=== PATIENT | male | born 1950 | race Caucasian/White ===

== ENCOUNTER 2020-10-16 09:05 | Outpatient (CLI) | payer MEDICARE, OTHER ==
[2020-10-16 09:56] VITALS: BP 108/60
--- NOTE | 2020-10-16 09:56 | SLEEP CARE CONSULTATION ---
Information from patient questionnaire entered by Elizabeth Mays. I have reviewed and concur with the information entered by Elizabeth Mays. This document represents the service I personally performed and the decisions made by me, Rachel Humphries ARNP. History of Present Illness Service Date and Time: 10/16/2020 09 Reason for Visit: New patient Chief Complaint: reports: Insomnia, Unrefreshed sleep, Snoring, Excessive daytime sleepiness, Observed pauses in breathing, Fatigue, Frequent awakenings at night Date of Onset: some a few years, some a few months Usual bedtime: 11-11:30 pm Time it takes to fall asleep: 10 minutes Snores at night: Yes (sometimes, intermittently) Observed to quit breathing while asleep: Yes Sleeps alone due to snoring: No Number of times waking at night: 3-6 Reasons for waking at night: reports: Gasping for air, Bathroom. denies: Choking, Snoring Toss, Turn, or Twitch while sleeping: Yes (occasional twitch) Recalls having dreams: No (rarely) Usually gets out of bed at: 7-8 am Feels refreshed in the morning: No Morning headache: No Sleepy or fatigued during the day: Yes Ever fallen asleep while driving: No Takes day naps: Yes (daily for 2 hours) Dreams during day naps: No Prior sleep studies: No Additional HPI information: I had the pleasure of seeing KAREN COPPOLA today regarding the possibility of him having a sleep disorder. His current complaints are insomnia, snoring, observed pauses in breathing, frequent night awakenings, unrefreshed sleep, excessive daytime sleepiness and fatigue. He has a MD diagnosis of sleep apnea from a doctor in the hospital. He has been sleeping in a chair since September. He is unable to lay down due to waking up gasping for air and "jumping out of bed" to be able to sleep. He has always snored and noted he has had apneas when sleeping at night. He was seen in the ER and found to have a CHF and was told by the nurse that he had pauses in breathing. A respiratory therapist tried to fit him with a machine in the hospital but it did not work. He was sent here to evaluate him for sleep apnea. - Parasomnia Symptoms Ever been unable to move upon waking from sleep: No Walks in sleep: No Talks in sleep: No Ever acted out dreams in sleep: No Ever felt weak in the knees when startled or emotional: Yes Bothered by creepy, crawly, restless sensations in legs: Yes (rarely) Problems with memory or concentration: Yes (sometimes) Subjective Initial [place] Sleepiness Scale score: 13 (in 2020) Past Medical History Past Medical History: reports: Hypertension, Claustrophobia, Congestive Heart Failure, Diabetes, Arthritis, Coronary Heart Disease (CT 1989, coronary arterial bypass grafts in 1996), Anemia, Impotence, Other (newly diagnosed heart failure, prostate cancer) Social History 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 Patient is and lives in [place]. Have you smoked in the past 12 months: No Cigarettes per day (20/pack): 30 Years of smokin Quit date: 07/12/1990 Smoking Pack Years: 31.5 Alcohol use: Yes Alcohol amount and frequency: little, rarely Caffeine use: Yes Caffeine amount and frequency: coffee, 3-4 cups daily Family History Family history of sleep disordered breathing: No Allergies and Home Medications Drug allergies reviewed: Yes (tetanus anti-toxins; Actiphed, Bactrim) Home medication list reviewed: Yes Allergy and home medication list: Lantus 15 units BID Januvia 50 mg Novolog U 100 sliding scale Atorvastatin 80 mg Lisinopril 2.5 mg Aspirin 81 mg, 2 tabs bid Magnesium 200 mg Metoprolol XL 25 mg Furosemide 20 mg Ferrous Sulfate 325 mg Vitamin C Flomax 0.4 mg 2 per day Vitamin D3 2000 IU x 4 tabs Mupirocin 2% Ketoconazole shampoo and cream Clobetasol ointment and cream, psoriasis Review of Systems Weight gain over past 5 years: 5 Cardiovascular: reports: high blood pressure, irregular heart rate or pulse, leg or foot swelling, have to sleep sitting up Respiratory: reports: shortness of breath Urinary: reports: frequency, urgency, impotence Neurological: reports: fainting or unconsciousness Psychiatric: reports: anxiety, claustrophobia Ear/Nose/Throat: reports: nasal congestion, nose bleeds, tonsillectomy, wisdom teeth removed Endocrine: reports: sluggishness, too hot or cold Musculoskeletal: reports: joint pain, back pain, joint swelling, muscle pain or cramping, mobility problems Immunologic: reports: sneezing, rash Physical Exam Blood Pressure: 108/60 Cuff size: wrist Heart Rate: 41 (pt nonsymptomatic for bradycardia) O2 Saturation: 99 Height: 5 ft 10 in Weight: 198 lb 8 oz (measured on home scale) Body Mass Index: 28.5 BMI Classification: Overweight Neck circumference: 15.9 (inches) Nostrils: patent to airflow Mouth and throat: narrow oropharynx Soft palate: long Hard palate: normal Uvula: normal Uvula visualization: 100% Mallampati Class I Tongue: normal in size Tonsils: absent bilaterally Neck: normal w/o lymphadenopathy or thyromegaly Heart: regular rate and rhythm Lungs: clear bilaterally Impression and Plan 1. Suspected Obstructive Sleep Apnea-Hypopnea Syndrome, as suggested by a history of loud and irregular snoring, observed cessation of breath while asleep, gasping or choking in sleep, frequent awakening during the night, unrefreshed sleep, cognitive impairment, and excessive daytime sleepiness. Narrow oropharynx and obesity are common predisposing factors for obstructive sleep apnea-hypopnea syndrome. I recommend proceeding to polysomnography to confirm the diagnosis and to assess severity. If the patient has significant sleep disordered breathing, a manual CPAP titration study will also be performed to find the optimal treatment pressure. I informed the patient of what the sleep studies involve and after some discussion, obtained agreement to proceed. The pathophysiology of obstructive sleep apnea-hypopnea syndrome was discussed with the patient and health risks of cardiovascular and cerebrovascular disease if not treated. Risks of drowsy driving discussed in detail and patient advised to avoid long distance driving and to pullman car clerk at the first sign of drowsiness. Patient agreed to plan. * Schedule polysomnography +- manual CPAP titration study and return in 1-2 weeks after the study to discuss result and initiate therapy. * Avoid long distance driving or driving when feeling sleepy. * Avoid alcohol, sedative and muscle relaxant around bedtime. * Attempt to lose weight. * Review instructions provided by trained office staff on how to prepare for the sleep study. * Return for follow-up after sleep study completed. Counseling Topics: Weight loss health impact Visit Type: In Office Time Spent with Patient (minutes): 37 Provider Statement: I spent 100% of the Face to Face Visit with the patient with greater than 50% spent counseling the patient and coordination of care.
== END 2020-10-16 09:06 | disposition home or self-care (01) ==
LOC: SC 09:05
PROVIDERS: ATTEND Nurse Practitioner Family
DX: R06.81 Apnea, not elsewhere classified (principal); G47.10 Hypersomnia, unspecified; G47.8 Other sleep disorders; E66.3 Overweight; Z68.28 Body mass index [BMI] 28.0-28.9, adult; R06.83 Snoring; R41.89 Other symptoms and signs involving cognitive functions and awareness
CPT/HCPCS: 99203; G0463; 99212

== ENCOUNTER 2020-11-01 09:51 | Outpatient (CLI) | payer MEDICARE, OTHER ==
--- NOTE | 2020-11-01 10:38 | SLEEP CARE CONSULTATION ---
Information from patient questionnaire entered by Elizabeth Mays. I have reviewed and concur with the information entered by Elizabeth Mays. This document represents the service I personally performed and the decisions made by , Rachel Humphries ARNP. History of Present Illness Service Date and Time: 11/01/2020 0951 Accompanied by: Spouse Initial [place] Sleepiness Scale score: 13 (in 2020) Current [place] Sleepiness Scale score: 17 Additional HPI information: KAREN COPPOLA returns with spouse for follow up and results of the recently performed polysomnography. I explained the pathophysiology behind obstructive sleep apnea. We then spent quite a bit of time discussing different treatment options. For mild obstructive sleep apnea, surgery and oral appliance are alternatives to nasal CPAP therapy but in moderate or severe cases, nasal CPAP is the most effective and reliable treatment. Because apnea is primarily in supine position, then positional management therapy could be effective. Methods discussed such as positioning with pillows, using a T-shirt with tennis balls in the back, and shown commercial products that have a pillow format on back to prevent supine sleep. I reviewed the impact of weight changes on sleep apnea and strongly recommended losing weight. Patient counseled not drink alcohol less than 4 hours before bedtime as it can increase snoring and apnea. Patient was cautioned about risks of drowsy driving until sleepiness symptoms resolve. Sleep Study - Results Type of Sleep Study: Polysomnography (at [facility]) Prior sleep studies: No Polysomnography/Home Sleep Study results: Interpretation: In-laboratory Attended Nocturnal Polysomnography. The patient had normal sleep efficiency. The sleep architecture was abnormal for sleep fragmentation and reduced amount of time spent in REM and slow wave sleep. Respiratory monitoring showed severe central sleep apnea-hypopnea (AHI 58.5) associated with frequent arousals, oxyhemoglobin desaturation and moderate hypoxia (rena oxygen saturation of 80.0%), Baseline oxygen saturation was normal. The respiratory events occurred mainly during non-REM sleep. The patient only slept in supine position during this study. Snoring was light to moderate in intensity. There was no periodic leg movement of sleep. Cardiac rhythm was atrial fibrillation. No abnormal behavior (parasomnia) observed during the night. Allergies and Home Medications Home medication list reviewed: Yes (metroprolol) Review of Systems Review of systems same as previous: Yes (no changes) Physical Exam Heart Rate: 34 (due to metoprolol) O2 Saturation: 96 Height: 5 ft 10 in Weight: 196 lb 11.2 oz Body Mass Index: 28.2 BMI Classification: Overweight Impression and Plan 1. Central Sleep Apnea-Hypopnea Syndrome, severe, with lowest oxygen saturation of 80%. Obviously this is the cause of the patients symptoms of unrefreshed sleep, and excessive daytime sleepiness. Positive pressure therapy could benefit hypertension, diabetes, congestive heart failure, heart disease and heart arrhythmia. A manual titration study will be completed to find optimal treatment pressure. I instructed to avoid sleeping supine using pillow positioning or sitting with head up until able to start CPAP use. 2. Atrial fibrillation seen during PSG. He is newly diagnosed with CHF and was told he may develop atrial fibrillation by his mold swabber. Patient was advised to follow up as appropriate with mold swabber for further evaluation of his heart rhythm. * Titration study * Follow up with mold swabber as appropriate for atrial fibrillation * Attempt to lose weight. * Avoid alcohol consumption near bedtime. * Avoid supine sleep until using CPAP/BIPAP. * The patient is again cautioned about driving until sleepiness completely resolves. * Return after titration study to initiate therapy Counseling Topics: Weight loss health impact Visit Type: In Office Other Participants: Spouse/Significant Other Time Spent with Patient (minutes): 21 Provider Statement: I spent 100% of the Face to Face Visit with the patient with greater than 50% spent counseling the patient and coordination of care.
--- OUTSIDE RECORDS SUMMARY | 2020-11-07 00:40 | EXTERNAL MEDICAL SUMMARY RPT | Continuity of Care Document ---
:1950 Demographics Phone Unavailable Preferred Language Vietnamese Marital Status Unknown Buddhism Affiliation Unknown Race Unknown Ethnic Group Unknown Author Organization [place] Address [address] [phone] Phone Care Team Providers Name Role Phone Lanker Unavailable Unavailable [place] Unavailable Unavailable Problems date description facility 20200925 Acute kidney failure, unspecified [facility] Medications date description facility 20200925 ferrous sulfate 325 MG Oral Tablet [facility] [id number] sitagliptin 50 MG Oral Tablet [facility] [id number] Tamsulosin hydrochloride 0.4 MG Oral [facility] [id number] ferrous sulfate 325 MG Oral Tablet [facility] [id number] sitagliptin 50 MG Oral Tablet [facility] [id number] Tamsulosin hydrochloride 0.4 MG Oral [facility] [id number] Metoprolol Tartrate 25 MG Oral Tablet [facility] 20200928 Metoprolol Tartrate 25 MG Oral Tablet [facility] Procedures date description facility 20200925 [facility] date description facility [id number] [facility] date description facility 20200925 [facility] date description facility 20200925 [facility] date description facility 20200929 [facility] Vital Signs date measurement value source 20200925 BMI 29.0 kg/m2 [id number] BP_diastolic 65 mm[Hg] 98710722 BP_systolic 150 mm[Hg] 52721591 heart_rate 80 /min [id number] height_metric 177.8 cm [id number] height_standard 70 in 20200925 respiration_rate 14 /min 20200925 temperature_metric 36.22 C 20200925 temperature_standard 97.2 F 20200925 weight_metric 91.62 kg [id number] weight_standard 201.99 lb date measurement value source 20200926 height_metric 177.8 cm [id number] height_standard 70 in date measurement value source 20200928 BP_diastolic 69 mm[Hg] 20200928 BP_systolic 108 mm[Hg] 20200928 heart_rate 61 /min 20200928 respiration_rate 16 /min 20200928 temperature_metric 36 C 20200928 temperature_standard 96.8 F 20200928 weight_metric 88.8 kg 20200928 weight_standard 195.77 lb date measurement value source 20200929 BMI 29.4 kg/m2 20200929 BP_diastolic 55 mm[Hg] 20200929 BP_systolic 91 mm[Hg] 20200929 heart_rate 71 /min 20200929 height_metric 177.8 cm 20200929 height_standard 70 in 20200929 respiration_rate 25 /min 20200929 temperature_metric 36.28 C 20200929 temperature_standard 97.3 F 20200929 weight_metric 42.18 kg 20200929 weight_standard 92.99 lb Social History date description facility [id number]
== END 2020-11-01 09:52 | disposition home or self-care (01) ==
LOC: SC 09:51
PROVIDERS: ATTEND Nurse Practitioner Family
DX: Z01.818 Encounter for other preprocedural examination (principal); G47.31 Primary central sleep apnea; I48.91 Unspecified atrial fibrillation; I50.9 Heart failure, unspecified; E66.3 Overweight; Z68.28 Body mass index [BMI] 28.0-28.9, adult; Z20.822 Contact with and (suspected) exposure to COVID-19
CPT/HCPCS: 99213; G0463; U0004; 99212

== ENCOUNTER 2020-11-01 10:50 | Outpatient (CLI) | payer MEDICARE, OTHER ==
--- OUTSIDE RECORDS SUMMARY | 2020-11-07 00:48 | EXTERNAL MEDICAL SUMMARY RPT | Continuity of Care Document ---
:1950 Demographics Phone Unavailable Preferred Language Luxembourgish Marital Status Unknown Mandaen Affiliation Unknown Race Unknown Ethnic Group Unknown Author Organization [place] Address [address] [phone] Phone Care Team Providers Name Role Phone Noé Unavailable Unavailable Lanker Unavailable Unavailable Problems date description facility 20200925 Acute kidney failure, unspecified [facility] Medications date description facility 20200925 ferrous sulfate 325 MG Oral Tablet [facility] [id number] sitagliptin 50 MG Oral Tablet [facility] 22291368 Tamsulosin hydrochloride 0.4 MG Oral [facility] 73218559 ferrous sulfate 325 MG Oral Tablet [facility] [id number] sitagliptin 50 MG Oral Tablet [facility] 24817385 Tamsulosin hydrochloride 0.4 MG Oral [facility] 35182599 Metoprolol Tartrate 25 MG Oral Tablet [facility] 20200928 Metoprolol Tartrate 25 MG Oral Tablet [facility] Procedures date description facility 20200925 [facility] date description facility [id number] [facility] date description facility 20200925 [facility] date description facility 20200925 [facility] date description facility 20200929 [facility] Vital Signs date measurement value source 20200925 BMI 29.0 kg/m2 92215351 BP_diastolic 65 mm[Hg] 12908995 BP_systolic 150 mm[Hg] 50400285 heart_rate 80 /min 14186586 height_metric 177.8 cm [id number] height_standard 70 in 20200925 respiration_rate 14 /min 20200925 temperature_metric 36.22 C 20200925 temperature_standard 97.2 F 20200925 weight_metric 91.62 kg 01659934 weight_standard 201.99 lb date measurement value source 20200926 height_metric 177.8 cm [id number] height_standard 70 in date measurement value source [...] 92.99 lb Social History date description facility [id number]
== END 2020-11-01 10:51 | disposition home or self-care (01) ==
LOC: LAB.N 10:50
PROVIDERS: ATTEND Student in an Organized Health Care Education/Training Program
DX: Z01.812 Encounter for preprocedural laboratory examination (principal); Z20.822 Contact with and (suspected) exposure to COVID-19

== ENCOUNTER 2020-11-13 16:03 | Outpatient (CLI) | payer MEDICARE, OTHER ==
--- NOTE | 2020-11-13 17:16 | SLEEP CARE CONSULTATION ---
Information from patient questionnaire entered by Abdirahman Lara. I have reviewed and concur with the information entered by Abdirahman Lara. This document represents the service I personally performed and the decisions made by , Rachel Humphries ARNP. History of Present Illness Service Date and Time: 11/13/2020 1603 Initial [place] Sleepiness Scale score: 13 (in 2020) Current [place] Sleepiness Scale score: 16 Additional HPI information: KAREN COPPOLA retruns with spouse for follow up of the sleep study with a manual CPAP to BIPAP titration study performed on 11/04/2020 at [facility]. I explained that the optimal BIPAP pressure is 17/12 cmH2O. He was titrated up to 15/[address] Avalos recommended that because he continued to snore and oxyhemoglobin desaturation still persisted that he be set up at the 17/12 with a backup rate at 10 breaths per minute. Sleep Study - Results Type of Sleep Study: Polysomnography (at [facility]) Prior sleep studies: No Polysomnography/Home Sleep Study results: Interpretation: In-laboratory manual positive airway pressure titration study. CPAP was initiated at 5 cmH2O and titrated up to BiPAP A/T at 15/10 cmH20 and a backup rate of 11 . BiPAP SIT at 15/10 cmH20 appeared to be effective (AHi of O per hour on the pressure). There was supine sleep on the pressure. Oxygen saturation was mildly low from frequent oxyhemoglobin desaturation. Snore persisted throughout the study. CPAP and regular BiPAP allowed frequent central apneas and Joel-Alvarez breathing. The patient appeared to have tolerated positive airway pressure therapy very well. The patient's sleep efficiency was minimally reduced. The sleep architecture was abnormal for sleep fragmentation and reduced amount of time spent in REM sleep. There was no periodic limb movement. Cardiac rhythm was sinus rhythm frequent premature atrial contractions in bigeminy. No abnormal movement observed during the night. Recommendations: 1. Central sleep apnea-hypopnea ~ ICD G47.3 l, severe (AHi was with a backup rate of 58.5), adequately controlled with BiPAP SIT at 15/10 cmH20 and backup rate of 11. CPAP and regular BiPAP were ineffective. Because snore and oxyhemoglobin desaturation still persisted, a higher pressure setting is recommended. BiPAP set at 17/12 cmlH2O is reas onable. Backup rate can be set at 10 breaths per minute. Allergies and Home Medications Home medication list reviewed: Yes Allergy and home medication list: stopped Metropolol started Carvedilol Review of Systems Review of systems same as previous: No (change in heart medication; has a regular irregular heart beat) Physical Exam Heart Rate: 38 (thinks it is medication related) O2 Saturation: 96 Height: 5 ft 10 in Weight: 195 lb Body Mass Index: 27.9 BMI Classification: Overweight Impression and Plan 1. Central Sleep Apnea-Hypopnea Syndrome, severe. He returned after his titration study with noted control of his apneas on BIPAP at 15/10 cmH2O. But it was recommended because of continued snoring and oxygen desaturation that continued at that pressure level that he start at 17/12 cmH2O with backup rate of 10 breaths per minute. Due to patient severity and need for treatment, I am writing for an urgent setup. Patient voiced understanding and agreement to plan. Patient's apnea severity and rationale for treatment to reduce apnea, improve sleep quality and reduce cardiovascular and cerebrovascular events was reviewed. I also reviewed the benefit of consistent device use of BIPAP for hypertension and heart arrhythmia. Urgent setup: Nasal autoBiPAP therapy, pressure at 17/12 cm H2O. Attempt to lose weight. Avoid alcohol consumption near bedtime. Avoid supine sleep until using BIPAP. The patient is again cautioned about driving until sleepiness completely resolves. Return one month after CPAP obtained. I will assess response to therapy and compliance at that time. Counseling Topics: Weight loss health impact Visit Type: In Office Other Participants: Spouse/Significant Other Time Spent with Patient (minutes): 32 Provider Statement: I spent 100% of the Face to Face Visit with the patient with greater than 50% spent counseling the patient and coordination of care.
== END 2020-11-13 16:04 | disposition home or self-care (01) ==
LOC: SC 16:03
PROVIDERS: ATTEND Nurse Practitioner Family
DX: G47.31 Primary central sleep apnea (principal); E66.3 Overweight; Z68.27 Body mass index [BMI] 27.0-27.9, adult
CPT/HCPCS: 99214; G0463; 99212

== ENCOUNTER 2021-01-08 09:58 | Outpatient (CLI) | payer MEDICARE, OTHER ==
--- NOTE | 2021-01-08 10:59 | SLEEP CARE CONSULTATION ---
Information from patient questionnaire entered by Elizabeth Mays. I have reviewed and concur with the information entered by Elizabeth Mays. This document represents the service I personally performed and the decisions made by , Rachel Humphries ARNP. History of Present Illness Service Date and Time: 01/08/2021 0958 Previous diagnosis: Severe, Central Sleep Apnea-Hypopnea Syndrome AHI: 58.5 (in 2020) Reason for follow up: first compliance Equipment type: BiPAP (S/T) Equipment obtained from: Other ([facility]; got initial supplies) Mask style: Nasal Backup mask available: Yes (old mask from sleep study) Prior sleep studies: Yes Year and Where: 2020 - [facility] Type of Sleep Study: Polysomnography (at [facility]) HPI additional information: KAREN COPPOLA was diagnosed to have severe, AHI 58.5, central sleep apnea- hypopnea syndrome and returned today with spouse for BIPAP therapy first compliance follow-up. CPAP Compliance Data - Data Reviewed with Patient Average duration of nightly device use: 4 hr 5 min Compliance rate %: 70 Current pressure setting (cmH2O): 14/10 Humidity settin Heated hose settin Average residual AHI: 18.8 Subjective Patient concerns: reports: mask discomfort, nasal congestion (in general, no due to CPAP), dry mouth, nose, throat (using chinstrap). denies: aerophagia, air blowing in eyes, mask leak noise, condensation in mask/hose, epistaxis, other Observed to snore while using device: No Current pressure setting perceived as: comfortable On therapy, patient: reports: sleeping better, awakening more refreshed, being more awake and alert during the day, more rested overall. denies: drowsiness while driving Initial [place] Sleepiness Scale score: 13 (in 2020) Current [place] Sleepiness Scale score: 11 Allergies and Home Medications Home medication list reviewed: Yes (lisinopril 2.5 mg; Jardiance stopped) Review of Systems Review of systems same as previous: Yes (no changes) Physical Exam Heart Rate: 60 O2 Saturation: 99 Height: 5 ft 10 in Weight: 193 lb 1.6 oz Weight change since last visit: 2 lb loss Body Mass Index: 27.7 BMI Classification: Overweight Impression and Plan 1. Central Sleep Apnea-Hypopnea Syndrome, severe, with fair treatment compliance and fair apnea control with elevated residual AHI. On BIPAP therapy, the patient has better sleep quality and is more rested overall. His states that he seems to be resting more comfortably and not as restless at night. He has had some throat dryness that improved with use of a chinstrap. We discussed using the humidifier to help reduce oral dryness and he voiced understanding. He also voiced that he would like to try a fullface mask to see if it is more comfortable than the nasal cushion that he is using now. He has tried the nasal pillows and this was not as comfortable as the nasal cushion. He finds the current pressure comfortable but his residual AHI is elevated at 18.8. I will change his pressure slowly since he was having difficulty with oral venting which was improved with the chinstrap. He would like to increase pressure slowly so that he may get used to it. His titration study showed good apnea control at 15/10 cmH2O and I will increase his pressure to this and follow-up with him in 1 to 2 months. Patient voiced understanding and agreement with plan of care. Patient's apnea severity and rationale for treatment to reduce apnea, improve sleep quality and reduce cardiovascular and cerebrovascular events was reviewed. I also reviewed the benefit of consistent device use of BIPAP for hypertension, and arrhythmia. * Change auto BIPAP pressure to 15/10 cmH2O * Notify me if snoring with mask or feeling that the pressure is too much or too little * Attempt to lose weight * Call this office if any problems using BIPAP * Return for follow up in 1-2 months, or sooner if concerns arise Counseling Topics: Spare mask, Weight loss health impact Visit Type: In Office Time Spent with Patient (minutes): 29 Provider Statement: I spent 100% of the Face to Face Visit with the patient with greater than 50% spent counseling the patient and coordination of care.
== END 2021-01-08 09:59 | disposition home or self-care (01) ==
LOC: SC 09:58
PROVIDERS: ATTEND Nurse Practitioner Family
DX: G47.33 Obstructive sleep apnea (adult) (pediatric) (principal); E66.3 Overweight; Z68.27 Body mass index [BMI] 27.0-27.9, adult
CPT/HCPCS: 99213; G0463; 99212

== ENCOUNTER 2021-02-20 09:49 | Outpatient (CLI) | payer MEDICARE, OTHER ==
--- NOTE | 2021-02-20 10:43 | SLEEP CARE CONSULTATION ---
Information from patient questionnaire entered by Abdirahman Lara. I have reviewed and concur with the information entered by Abdirahman Lara. This document represents the service I personally performed and the decisions made by me, Rachel Humphries ARNP. History of Present Illness Service Date and Time: 02/20/2021 0949 Previous diagnosis: Severe, Central Sleep Apnea-Hypopnea Syndrome AHI: 58.5 Reason for follow up: other (6-week f/u - pressure change) Accompanied by: Spouse Equipment type: BiPAP Equipment obtained from: Other ([facility]; getting supplies as needed) Mask style: Nasal Backup mask available: Yes (old mask) Last cushion change: rotates 3 daily Prior sleep studies: Yes Year and Where: 2020 - [facility] Type of Sleep Study: Polysomnography (at [facility]) HPI additional information: KAREN COPPOLA was diagnosed to have severe, AHI 58.5, central sleep apnea- hypopnea syndrome and returned today with spouse for BIPAP therapy 6 week pressure change follow-up. CPAP Compliance Data - Data Reviewed with Patient Average duration of nightly device use: 4 h 53 min Compliance rate %: 83.3 Current pressure setting (cmH2O): 15/10 Humidity settin Heated hose settin Average residual AHI: 15.1 Central apnea: 0.8 Obstructive apnea: 0.1 Hypopnea: 14.2 Subjective Patient concerns: reports: condensation in mask/hose, nasal congestion, dry mouth, nose, throat. denies: aerophagia, mask discomfort, air blowing in eyes, mask leak noise, epistaxis, other Observed to snore while using device: No Current pressure setting perceived as: comfortable On therapy, patient: reports: sleeping better, awakening more refreshed, being more awake and alert during the day, more rested overall. denies: drowsiness while driving Initial [place] Sleepiness Scale score: 13 (in 2020) Current [place] Sleepiness Scale score: 12 Allergies and Home Medications Home medication list reviewed: Yes Allergy and home medication list: Carvedilol Lokelma Review of Systems Review of systems same as previous: No (Heart cath on 03/01) Physical Exam Heart Rate: 44 O2 Saturation: 99 Height: 5 ft 10 in Weight: 193 lb 9.6 oz Body Mass Index: 27.8 BMI Classification: Overweight Impression and Plan 1. Central Sleep Apnea-Hypopnea Syndrome, severe, with good treatment compliance and fair apnea control with elevated residual AHI. On BIPAP therapy, the patient has better sleep quality and is more rested overall. The patients pressure will be changed to autoBIPAP 17/10 cmH20 for elevation of residual AHI. Patient advised to contact me if pressure change is uncomfortable so that it can be adjusted. Goals for apnea control discussed. Patient has been using a nasal cushion mask with a chin strap but is going to try a full face mask ([employer]) before ordering more nasal cushions. He has been having some nasal congestion and oral dryness. Nasal congestion and oral dryness can be reduced with increasing the CPAP humidity as shown on sample device. The heated hose can be adjusted higher if condensation with higher humidity setting. Saline nasal spray may be used prior to CPAP to clear nasal secretions and wash off any nasal allergens to facilitate nasal breathing. In addition, a steamy shower before bed will often assist nasal drainage. He voiced understanding. Patient's apnea severity and rationale for treatment to reduce apnea, improve sleep quality and reduce cardiovascular and cerebrovascular events was reviewed. I also reviewed the benefit of consistent device use of BIPAP for hypertension, CHF, and arrhythmia. Patient is aware of the [employer] recall and has registered his device. He has not noted any black particles in his tubing or machine. He states [facility] is [facility] if [facility] will replace his recalled device, so he does not have to wait. He will contact us if he needs something from us. * Change auto BIPAP pressure to 17/10 cmH2O * Notify me if snoring with mask or feeling that the pressure is too much or too little * Attempt to lose weight * Call this office if any problems using BIPAP * Return for follow up in 1-2 months, or sooner if concerns arise Counseling Topics: Spare mask, Weight loss health impact Visit Type: In Office Time Spent with Patient (minutes): 27 Provider Statement: I spent 100% of the Face to Face Visit with the patient with greater than 50% spent counseling the patient and coordination of care.
== END 2021-02-20 09:50 | disposition home or self-care (01) ==
LOC: SC 09:49
PROVIDERS: ATTEND Nurse Practitioner Family
DX: G47.31 Primary central sleep apnea (principal)
CPT/HCPCS: 99213; G0463; 99212

== ENCOUNTER 2021-04-04 23:33 | Outpatient (CLI) | payer MEDICARE, OTHER | END 2021-04-04 23:34 | disposition critical access hospital (66) | LOC: EMS 23:33 | DX: U07.1 COVID-19 (principal) | CPT/HCPCS: A0425; A0429 ==

== ENCOUNTER 2021-04-04 23:56 | Inpatient (IN) | payer MEDICARE, OTHER ==
[2021-04-05 00:40] LABS: EOSINOPHILS % (AUTO) 0.2 %; HCT - HEMATOCRIT 43.2 % (42.0-52.0); HGB - HEMOGLOBIN 13.9 g/dL (14.0-18.0); LYMPHOCYTES # (AUTO) 0.8 10^3/uL (1.5-3.5); LYMPHOCYTES % (AUTO) 11.5 %; MEAN CORPUSCULAR HEMOGLOBIN 29.6 pg (27.0-31.0); MEAN CORPUSCULAR HGB CONC 32.2 g/dL (32.0-36.0); MEAN CORPUSCULAR VOLUME 91.9 fL (80.0-94.0); MEAN PLATELET VOLUME 9.1 fL (7.4-11.4); MONOCYTES # (AUTO) 0.5 10^3/uL (0.0-1.0); NEUTROPHILS # (AUTO) 5.3 10^3/uL (1.5-6.6); NEUTROPHILS % (AUTO) 79.8 %; PLT - PLATELET COUNT 155 10^3/uL (130-450); RED CELL DISTRIBUTION WIDTH 13.7 % (12.0-15.0); WHITE BLOOD COUNT 6.6 x10^3/uL (4.8-10.8)
[2021-04-05 00:41] LABS: VBG BASE EXCESS -1.2 mmol/L (-2 - +2); VBG HCO3 24.2 mmol/L (23-28); VBG OXYGEN SATURATION 70.7 % (60-80); VBG PCO2 43.4 mmHg (41-51); VBG PH 7.365 (7.31-7.41); VBG PO2 36.6 mmHg (25-47); VBG TOTAL CO2 25.6 mmol/L (24-29)
[2021-04-05 00:57] LABS: ALBUMIN 3.3 g/dL (3.2-5.5); ALBUMIN/GLOBULIN RATIO 0.9 (1.0-2.2); BILIRUBIN,TOTAL 1.4 mg/dL (0.2-1.0); CALCIUM 8.7 mg/dL (8.5-10.3); CREATININE 1.3 mg/dL (0.6-1.2); CRP HIGH SENSITIVITY 121.5 mg/L; TOTAL PROTEIN 6.8 g/dL (6.7-8.2)
--- NOTE | 2021-04-05 01:03 | ED Physician Documentation ---
History of Present Illness - Stated complaint Stated Complaint: C+/ SOA - Chief complaint Chief Complaint: Resp - History obtained from History obtained from: Patient - Additonal information Additional information: 71-year-old man with history of heart failure, Coronary disease and [place] status post CABG, diabetes, high blood pressure, CKD, presents with positive Covid test on March 24, with worsening Covid symptoms over the past week of shortness of breath, chest pain, myalgias, nausea, lightheadedness, generalized weakness and malaise. Denies diarrhea and vomiting. Review of Systems Ten Systems: 10 systems reviewed and negative Constitutional: reports: Fever, Chills, Myalgias, Fatigue Cardiac: reports: Chest pain / pressure Respiratory: reports: Dyspnea, Cough GI: reports: Nausea Neurologic: reports: Generalized weakness PD PAST MEDICAL HISTORY - Past Medical History Past Medical History: Yes Cardiovascular: Congestive heart failure, Hypertension, High cholesterol Respiratory: Shortness of breath Neuro: None Endocrine/Autoimmune: Type 2 diabetes GI: None : Other HEENT: None Musculoskeletal: None Derm: None Other Past Medical History: Kidney failure - Past Surgical History Past Surgical History: Yes Cardiovascular: CABG, Other - Present Medications Home Medications: Ambulatory Orders Medication Instructions Recorded Confirmed Aspirin [Aspirin EC] 162 mg PO DAILY 04/05/21 04/05/21 Atorvastatin [Lipitor] 20 mg PO DAILY 04/05/21 04/05/21 Insulin Aspart [Novolog] 2 units SQ DAILY 04/05/21 04/05/21 Insulin Glargine [Lantus Solostar] 15 unit SQ DAILY 04/05/21 04/05/21 Lisinopril [Zestril] 2.5 mg PO DAILY 04/05/21 04/05/21 Sitagliptin Phosphate [Januvia] 50 mg PO DAILY 04/05/21 04/05/21 - Allergies Allergies/Adverse Reactions: Allergies Allergy/AdvReac Type Severity Reaction Status Date / Time bisoprolol Allergy Unknown Verified 04/05/21 00:33 sulfamethoxazole Allergy Unknown Verified 04/05/21 00:33 [From Bactrim] Tetanus Vaccines and Toxoid Allergy Unknown Verified 04/05/21 00:33 trimethoprim [From Bactrim] Allergy Unknown Verified 04/05/21 00:33 - Social History Does the pt smoke?: No Smoking Status: Never smoker Does the pt have substance abuse?: No - POLST Patient has POLST: No PD ED PE NORMAL - Vitals Vital signs reviewed: Yes - General General: Alert and oriented X 3, Other (uncomfortable appearing older gentleman in NAD) - HEENT HEENT: Atraumatic, PERRL, EOMI, Moist mucous membranes - Neck Neck: Supple, no meningeal sign - Cardiac Cardiac: RRR - Respiratory Respiratory: Other (BL rhonchi) - Abdomen Abdomen: Non tender, Non distended - Derm Derm: Normal color, Warm and dry - Neuro Neuro: Alert and oriented X 3 - Psych Psych: Normal mood, Normal affect Results - Vitals Vitals: Vital Signs - 24 hr 04/05/21 04/05/21 00:10 00:20 Temperature 36.6 C Heart Rate 86 Respiratory 22 Rate Blood Pressure 152/133 H O2 Saturation 91 L 91 L Oxygen O2 Source Room air - EKG (time done) 0010 Rate: Rate (enter#) Rhythm: NSR (80) [place]: RAD Intervals: Normal OK QRS: Normal Ischemia: No: ST elevation c/w ischemia - Labs Labs: Laboratory Tests 04/05/21 04/05/21 04/05/21 00:30 00:33 00:33 WBC 6.6 RBC 4.70 Hgb 13.9 L Hct 43.2 MCV 91.9 MCH 29.6 MCHC 32.2 RDW 13.7 Plt Count 155 MPV 9.1 Neut # (Auto) 5.3 Lymph # (Auto) 0.[address] [place] # (Auto) 0.5 Eos # (Auto) 0.0 Baso # (Auto) 0.0 Absolute Nucleated RBC 0.00 Nucleated RBC % 0.0 ESR D-Dimer 291.0 H Anti-Xa Level 0.0 VBG pH VBG pCO2 VBG pO2 VBG HCO3 VBG Total CO2 VBG O2 Saturation VBG Base Excess Sodium Potassium Chloride Carbon Dioxide Anion Gap BUN Creatinine Estimated GFR (MDRD) Glucose Lactic Acid Calcium Total Bilirubin AST ALT Alkaline Phosphatase Troponin I High Sens C-React Prot High Sens B-Natriuretic Peptide Total Protein Albumin Globulin Albumin/Globulin Ratio Lipase 04/05/21 04/05/21 04/05/21 00:33 00:33 00:33 WBC RBC Hgb Hct MCV MCH MCHC RDW Plt Count MPV Neut # (Auto) Lymph # (Auto) [place] # (Auto) Eos # (Auto) Baso # (Auto) Absolute Nucleated RBC Nucleated RBC % ESR D-Dimer Anti-Xa Level VBG pH VBG pCO2 VBG pO2 VBG HCO3 VBG Total CO2 VBG O2 Saturation VBG Base Excess Sodium 133 L Potassium 5.0 Chloride 97 L Carbon Dioxide 23 Anion Gap 13.0 BUN 29 H Creatinine 1.3 H Estimated GFR (MDRD) 54 L Glucose 154 H Lactic Acid Calcium 8.7 Total Bilirubin 1.4 H AST 45 H ALT 32 Alkaline Phosphatase 51 Troponin I High Sens 62.8 H* C-React Prot High Sens 121.5 B-Natriuretic Peptide 43 Total Protein 6.8 Albumin 3.3 Globulin 3.5 Albumin/Globulin Ratio 0.9 L Lipase 40 04/05/21 04/05/21 04/05/21 00:33 00:33 00:54 WBC RBC Hgb Hct MCV MCH MCHC RDW Plt Count MPV Neut # (Auto) Lymph # (Auto) [place] # (Auto) Eos # (Auto) Baso # (Auto) Absolute Nucleated RBC Nucleated RBC % ESR 44 H D-Dimer Anti-Xa Level VBG pH 7.365 VBG pCO2 43.4 VBG pO2 36.6 VBG HCO3 24.2 VBG Total CO2 25.6 VBG O2 Saturation 70.7 VBG Base Excess -1.2 Sodium Potassium Chloride Carbon Dioxide Anion Gap BUN Creatinine Estimated GFR (MDRD) Glucose Lactic Acid 1.0 Calcium Total Bilirubin AST ALT Alkaline Phosphatase Troponin I High Sens C-React Prot High Sens B-Natriuretic Peptide Total Protein Albumin Globulin Albumin/Globulin Ratio Lipase PD MEDICAL DECISION MAKING - ED course ED course: Negative age adjusted d-dimer. elevated trop without acute EKG changes. ASA and heparin administered. d/w Dr. Leary for admission. Departure - Departure Disposition: 66 [facility] DC/Xfer Clinical Impression: COVID-19, NSTEMI (non-ST elevated myocardial infarction), Hypoxia Condition: Stable
[2021-04-05] MEDS ORDERED: ASPIRIN 325 MG TABLET PO STA (01:05)
[2021-04-05] MEDS ORDERED: oxyCODONE 5 MG TABLET PO PRN (01:53)
[2021-04-05] MEDS ORDERED: ONDANSETRON 4 MG/2 ML VIAL IVP PRN (01:53)
[2021-04-05] MEDS ORDERED: ONDANSETRON ODT 4 MG TABLET TL PRN (01:53)
[2021-04-05] MEDS ORDERED: ACETAMINOPHEN 325 MG TABLET PO PRN (01:53)
[2021-04-05] MEDS ORDERED: HEPARIN 25000UNITS/500ML (D5W) 25,000 UNIT/500 ML BAG IV SCH (02:00)
[2021-04-05] MEDS ORDERED: ENOXAPARIN 80 MG/0.8 ML SYRINGE SUBQ SCH (02:00)
--- NOTE | 2021-04-05 02:43 | HISTORY & PHYSICAL EXAMINATION ---
Chief Complaint - Chief Complaint Chief Complaint: Cough and shortness of breath History of Present Illness - Admitted From Admitted From:: Home - History Obtained From Records Reviewed: [facility] History obtained from: Patient and Exam Limitations: None - History of Present Illness HPI Comment/Other: 71-year-old white male with major medical illnesses of congestive heart failure, diabetes, coronary artery disease, hypertension that was Covid test positive on March 24 from a [facility] test and has been progressively worsening with cough, fever, shortness of breath, no appetite. He has chest tightness but denies chest pain. There is no pleuritic chest pain. There is no nausea, abdominal pain or diarrhea. There is no hemoptysis. He is usually followed by the [facility] in [place] with Dr. Jessi Ohara. He is also followed by [facility] cardiology. He states that he began becoming ill from congestive heart failure months ago after being given Bactrim for nasal MRSA. He had an ejection fraction of 18%. After treatment and evaluation, he then had a coronary angiogram March 01. His ejection fraction is now back up to 56%. He has no valvular heart disease. And his coronary arteries are "open" according to he and his 's history. In addition to the CHF, his kidneys "shut down" with the BActrim. He denies pedal edema, but does have orthopnea these last couple of weeks. He states that he was advised by his site engineer at the [facility] not to be vac cinated for COVID-19, at least not until he was "better". In the emergency room temperature was 36.6. Heart rate was 86. Respirations were 22. And he is 91% on room air. Blood pressure is 152/133. He is fatigued appearing. Has bilateral lung rhonchi. But no increased respiratory effort or use of accessory muscles. He says he is exhausted and just can barely get up to sit up and walk across the room. Sodium is 133. BUN is 29, creatinine 1.3. Random glucose 154. Total bili 1.4. AST 45. First set of troponin is 62.8. D-dimer is 291. Chest x-ray has bibasilar consolidation. History - Past Medical History Cardiovascular: reports: Congestive heart failure (due to Bactrim and NOT CAD), Hypertension, High cholesterol Respiratory: reports: Shortness of breath, Sleep apnea Neuro: reports: None Endocrine/Autoimmune: reports: Type 2 diabetes GI: reports: None : reports: Renal insuffiency, Other (prostate cancer ) HEENT: reports: None Psych: reports: None Musculoskeletal: reports: Rheumatoid arthritis Derm: reports: None MRSA Hx?: No Other Past Medical History: Kidney failure - Past Surgical History Cardiovascular: reports: CABG (1989), Other (coronary angiogram) - Family & Social History Family History Comment/Other: Dad at age 48 of pericardial tamponade. Mom in her 70s of COPD after smoking all of her life. 1 brother and 1 sister. Sister is obese but they are both healthy without high blood pressure, diabetes, cancer, heart attack. 1 child with his first . Thyroid cancer Living arrangement: At home Living Situation: With spouse/s.o. Social History Notes: to his second . They have been over 3 decades. He has one child from his first marriage. He did [employer] work with the [employer] and retired. 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 He started smoking at the age of 17 and smoked a pack and a half a day until 1989. No history of alcohol abuse. No history of recreational substance abuse. - Substance History Use: Uses substance without health or social issues: NONE Abuse: Recurrent use of substance despite neg consequences: NONE Dependence: Experiences withdrawal or developed tolerances: NONE - POLST Patient has POLST: No POLST Status: Full Code Meds/Allgy - Home Medications Home Medications: Ambulatory Orders Medication Instructions Recorded Confirmed Aspirin [Aspirin EC] 162 mg PO DAILY 04/05/21 04/05/21 Atorvastatin [Lipitor] 20 mg PO DAILY 04/05/21 04/05/21 Insulin Aspart [Novolog] 2 units SQ DAILY 04/05/21 04/05/21 Insulin Glargine [Lantus Solostar] 15 unit SQ DAILY 04/05/21 04/05/21 Lisinopril [Zestril] 2.5 mg PO DAILY 04/05/21 04/05/21 Sitagliptin Phosphate [Januvia] 50 mg PO DAILY 04/05/21 04/05/21 - Allergies Allergies/Adverse Reactions: Allergies Allergy/AdvReac Type Severity Reaction Status Date / Time bisoprolol Allergy Unknown Verified 04/05/21 00:33 sulfamethoxazole Allergy Unknown Verified 04/05/21 00:33 [From Bactrim] Tetanus Vaccines and Toxoid Allergy Unknown Verified 04/05/21 00:33 trimethoprim [From Bactrim] Allergy Unknown Verified 04/05/21 00:33 Review of Systems - Constitutional Constitutional: reports: Fatigue, Fever, Chills, Malaise, Poor appetite, Diaphoresis - Eyes Eyes: reports: Vision loss (as he aged), Corrective lenses. denies: Amaurosis, Blurred vision, Dipolpia - Ears, Nose & Throat Ears, Nose & Throat: reports: Nasal congestion, Postnasal drainage. denies: Hearing loss, Hearing aids, Tinnitus, Vertigo, Sore throat, Hoarseness - Cardiovascular Cariovascular: reports: Exertional dyspnea, Decr. exercise tolerance, Orthopnea. denies: Edema - Respiratory Respiratory: reports: Cough, Orthopnea, SOB at rest, SOB with exertion, Apnea. denies: Sputum production, Hemoptysis - Gastrointestinal Gastrointestinal: reports: Poor appetite. denies: Abdominal pain, Abdominal distention, Constipation, Diarrhea, Black stools, Bloody stools, Vomiting, Bile emesis, Reflux/heartburn - Genitourinary Genitourinary: reports: Frequency, Nocturia. denies: Dysuria, Urgency, Hematuria - Musculoskeletal Musculoskeletal: reports: Muscle aches, Stiffness, Joint pain - Integumentary Integumentary: denies: Rash, Pruritis, Lesions, Dryness - Neurological Neurological: reports: General weakness, Headache, Memory problems (This last week he feels like his brain is been in a fog and he cannot remember anything.). denies: Focal weakness, Dizziness, Numbness, Pre-existing deficit, Abnormal gait - Psychiatric Psychiatric: denies: Depression, Anxiety, Suicidal, Delusions, Hallucinations - Endocrine Endocrine: denies: Polyuria, Polydypsia, Polyphagia - Hematologic/Lymphatic Hematologic/Lymphatic: denies: Anemia, Bruising, Petechiae Prior Level of Functionality: In spite of his congestive heart failure and fatigue over the last few months, he has been independent with activities of daily living. He dresses himself, feeds himself, still drives a car. Able to help with light household duties in the house. Does not use any durable medical equipment other than his obstructive sleep apnea mask that he left at home tonight.Prior to his episode of congestive heart failure from the Bactrim, the only thing that limited was back pain and joint pain from his rheumatoid arthritis. Exam - Vital Signs Reviewed Vital Signs: Yes Vital Signs: Vital Signs x48h Temp Pulse Resp BP Pulse Ox 04/05/21 00:20 152/133 H 91 L 04/05/21 00:10 36.6 C 86 22 91 L - Physical Exam General Appearance: positive: Alert, Mild distress (When he starts to talk he gets noticeably more fatigued. Still able to complete full sentences but very tired.), Other (Fatigued appearing white male who looks his stated age. 5 feet 10 inches tall and weighs 85 kg.) Eyes Bilateral: positive: PERRL, EOMI ENT: positive: Dry mucous membranes Neck: positive: No JVD, Lymphadenopathy (R), Lymphadenopathy (L). negative: Stiff neck, Carotid bruit Respiratory: positive: No respiratory distress, Rales, Rhonchi. negative: Wheezes Cardiovascular: positive: Regular rate & rhythm, No murmur. negative: Gallop/S4, Friction rub Peripheral Pulses: positive: 1+ Abdomen: positive: Non-tender, No organomegaly, Nml bowel sounds, No distention Skin: positive: Warm, Dry Extremities: positive: Non-tender, Full ROM, No pedal edema Neurologic/Psychiatric: positive: Oriented x3, CN's nml (2-12), Motor nml Conclusion/Plan - Problem List (1) Pneumonia due to COVID-19 virus Conclusion/Plan: He does have bilateral lower lobe infiltrates on chest x-ray. While he describes fever in the home setting, there is no fever here. White cell count is normal. He is hypoxic at 91% saturation on room air. Plan: Inpatient admission Confirm Covid status with our testing as opposed to the [facility] that he did from home Remdesivir to start tomorrow Decadron tonight Azithromycin day 1/3 Rocephin 1 g day 08/07 (2) Hypoxia Conclusion/Plan: Due to pneumonia. At this time no significant JVD, noticed leg edema. I do not suspect congestive heart failure is contributing much to this. Plan: Supplemental oxygen as needed. Patient is a full code and would progress to BiPAP in the ICU or intubation if needed. (3) Elevated troponin Conclusion/Plan: In a patient who just underwent a coronary angiogram 3 weeks ago and tells me that his coronary arteries were "open". This could be due to demand ischemia in a patient who has mild congestive heart failure, and hypoxemia. Plan: Lovenox 85 mg twice daily Aspirin already given He is allergic to bisoprolol but I will try giving him low-dose metoprolol Atorvastatin 80 mg x 1 Trend troponins to see if he is truly increasing We will attempt to get records from his site engineer (4) Type 2 diabetes mellitus without complication, with long-term current use of insulin Conclusion/Plan: Patient checks his own glucose, takes insulin. Plan: Check A1c Lantus 15 units at night. I would anticipate he is going to be increasing his glucose due to the steroids. We will adjust Lantus as needed. Moderate [place] sliding scale insulin supplementation (5) History of acquired congestive heart failure Conclusion/Plan: But a wonderful story to hear that his ejection fraction is now back up to 55/56%. Recent coronary angiogram confirms that he tells me. At home he is on Zestril 2.5 and no diuretic. Plan: See what effect metoprolol 25 twice daily has. If blood pressure and pulse tolerate, then start Zestril as well. (6) Hypertension Conclusion/Plan: With the blood pressure of 133 diastolic, either mistake of how the blood pressure was recorded, or needs to be repeated.With the blood pressure of 133 diastolic, Qualifiers: Hypertension type: primary hypertension Qualified Code(s): I10 - Essential (primary) hypertension (7) Acute kidney insufficiency Conclusion/Plan: Kidneys went back to normal within weeks of the Bactrim use. I do not know what his baseline renal function is. I assume that this rising creatinine is new due to the fact that he is not been eating or drinking very much. Plan: Follow daily labs Avoid nephrotoxic agents See if we get all labs from the [employer] base or his site engineer - Lab Results Lab results reviewed: Yes Fish Bones: 04/05/21 00:33 04/05/21 00:33 - Diagnostic Imaging Results Diagnostic Imaging Results: positive: Prelim report reviewed (Preliminary report written and sent to Dr. Allred. Bilateral bibasilar consolidations.) - EKG Results EKG Interpreted Independently: No EKG Comparison: No prior EKG EKG Findings: Normal sinus rhythm with a borderline right axis deviation. [address]-T wave changes. Core Measures - Anticipated LOS I expect patient to be DC'd or transferred within 96 hours.: Yes - DVT/VTE - Prophylaxis VTE/DVT Device ordered at admit?: Yes
[2021-04-05] MEDS ORDERED: ATORVASTATIN 40 MG TABLET PO STA (03:10)
[2021-04-05] MEDS: METOPROLOL TARTRATE 25 MG TABLET PO SCH ×2 (03:17→08:27)
[2021-04-05] MEDS: DEXAMETHASONE 4 MG/ML VIAL IVP SCH ×2 (03:19→08:30)
[2021-04-05] MEDS: cefTRIAXone 1 GM in SODIUM CHLORIDE 0.9% MINIBAG 100 ML IV SCH (03:24)
[2021-04-05 04:29] LABS: B. PARAPERTUSSIS- RESP PCR PAN NOT DETECTED; B. PERTUSSIS- RESP PCR PANEL NOT DETECTED; C. PNEUMONIAE- RESP PCR PANEL NOT DETECTED; CORONAVIRUS 229E-RESP PCR NOT DETECTED; CORONAVIRUS HKU1-RESP PCR NOT DETECTED; CORONAVIRUS NL63-RESP PCR NOT DETECTED; CORONAVIRUS OC43-RESP PCR NOT DETECTED; HUMAN METAPNEUMOVIRUS NOT DETECTED; INFLUENZA A- RESP PCR PANEL NOT DETECTED; INFLUENZA B - RESP PCR PANEL NOT DETECTED; M. PNEUMONIAE- RESP PCR PANEL NOT DETECTED; PARAINFLUENZA VIRUS 1 NOT DETECTED; PARAINFLUENZA VIRUS 2 NOT DETECTED; PARAINFLUENZA VIRUS 3 NOT DETECTED; PARAINFLUENZA VIRUS 4 NOT DETECTED; RHINOVIRUS/ENTEROVIRUS NOT DETECTED; RSV- RESP PCR PANEL NOT DETECTED; SARS-CoV-2 -RESP PCR PANEL DETECTED
[2021-04-05] MEDS ORDERED: NON FORMULARY MED (Remdesivir 200 MG) IV SCH (07:00)
--- NOTE | 2021-04-05 07:57 | XRAY Report ---
PROCEDURE: Chest 1 View X-Ray INDICATIONS: Chest Pain TECHNIQUE: One view of the chest was acquired. COMPARISON: None FINDINGS: Surgical changes and devices: Median sternotomy wires. Lungs and pleura: No pleural effusions or pneumothorax. Increased opacification noted in the left freddy ng base. Mediastinum: Mediastinal contours appear normal. Heart size is normal. Bones and chest wall: No suspicious bony lesions. Overlying soft tissues appear unremarkable. IMPRESSION: Left basilar atelectasis versus pneumonia. Reviewed by: Belinda Arias MD, PhD on 04/05/2021 7:56 AM PDT Approved by: Belinda Arias MD, PhD on 04/05/2021 7:56 AM PDT Station ID: [id number]
[2021-04-05] MEDS: AZITHROMYCIN INJ 500 MG in SODIUM CHLORIDE 0.9% 250 ML IV SCH (08:27)
[2021-04-05] MEDS: ENOXAPARIN 40 MG/0.4 ML SYRINGE SUBQ SCH (08:30)
[2021-04-05] MEDS: INSULIN ASPART 300 UNIT/3 ML PEN SUBQ SCH ×5 (08:31→21:22)
[2021-04-05] MEDS: ethyl alcohoL 62% SWAB AMPULE NAS SCH ×2 (08:32→21:15)
[2021-04-05] MEDS: SODIUM CHLORIDE FLUSH 0.9% 10 ML SYRINGE IVP SCH ×2 (08:34→17:26)
[2021-04-05] MEDS ORDERED: ENOXAPARIN 100 MG/ML SYRINGE SUBQ SCH (09:00)
[2021-04-05] MEDS ORDERED: REMDESIVIR 100MG VIAL 200 MG in SODIUM CHLORIDE 0.9% 250 ML IV ONE (09:00)
[2021-04-05] MEDS ORDERED: INSULIN GLARGINE 300 UNIT/3 ML PEN SUBQ SCH ×2 (09:40→21:00)
--- NOTE | 2021-04-05 09:41 | PHARMACY PROGRESS NOTE ---
- Best Possible Medication History Admit Date and Time: 04/05/21 0153 Processed by: Nursing Medication History completed: Yes (MED REC COMPLETED BY NURSING) As the person ultimately responsible for medication therapy, providers are able to order a medication from an existing home medication list in [facility] via the "Reconcile Routine" prior to Confirmation of that medication by it technical support specialist. Such practice is discouraged except when the physician, in their clinical judgment, deems that a medical need exists for a medication without regard to previous use.
[2021-04-05 09:58] LABS: HCT - HEMATOCRIT 41.3 % (42.0-52.0); HGB - HEMOGLOBIN 13.5 g/dL (14.0-18.0); MEAN CORPUSCULAR HEMOGLOBIN 29.9 pg (27.0-31.0); MEAN CORPUSCULAR HGB CONC 32.7 g/dL (32.0-36.0); MEAN CORPUSCULAR VOLUME 91.4 fL (80.0-94.0); MEAN PLATELET VOLUME 10.3 fL (7.4-11.4); RED BLOOD COUNT 4.52 10^6/uL (4.70-6.10); RED CELL DISTRIBUTION WIDTH 13.8 % (12.0-15.0); WHITE BLOOD COUNT 8.7 x10^3/uL (4.8-10.8)
[2021-04-05] MEDS ORDERED: INSULIN ASPART 300 UNIT/3 ML PEN SUBQ ONE (21:17)
[2021-04-05] MEDS ORDERED: METOPROLOL TARTRATE 25 MG TABLET PO SCH (21:23)
[2021-04-05] MEDS: lisinopriL 5 MG TABLET PO SCH (21:33)
[2021-04-06] MEDS: cefTRIAXone 1 GM in SODIUM CHLORIDE 0.9% MINIBAG 100 ML IV SCH ×2 (02:23→21:15)
[2021-04-06] MEDS: SODIUM CHLORIDE FLUSH 0.9% 10 ML SYRINGE IVP SCH ×3 (02:24→16:54)
[2021-04-06] MEDS: SODIUM CHLORIDE FLUSH 0.9% 10 ML SYRINGE IVP PRN ×2 (02:27→09:54)
[2021-04-06] MEDS: INSULIN ASPART 300 UNIT/3 ML PEN SUBQ SCH ×7 (08:31→21:09)
[2021-04-06] MEDS: INSULIN GLARGINE 300 UNIT/3 ML PEN SUBQ SCH (08:33)
[2021-04-06 08:35] LABS: BASOPHILS % (AUTO) 0.1 %; HCT - HEMATOCRIT 44.6 % (42.0-52.0); LYMPHOCYTES # (AUTO) 0.7 10^3/uL (1.5-3.5); LYMPHOCYTES % (AUTO) 4.5 %; MEAN CORPUSCULAR HEMOGLOBIN 29.7 pg (27.0-31.0); MEAN CORPUSCULAR HGB CONC 33.6 g/dL (32.0-36.0); MEAN CORPUSCULAR VOLUME 88.3 fL (80.0-94.0); MEAN PLATELET VOLUME 10.1 fL (7.4-11.4); MONOCYTES # (AUTO) 0.5 10^3/uL (0.0-1.0); MONOCYTES % (AUTO) 3.6 %; NEUTROPHILS # (AUTO) 13.3 10^3/uL (1.5-6.6); NEUTROPHILS % (AUTO) 91.4 %; PLT - PLATELET COUNT 231 10^3/uL (130-450); RED BLOOD COUNT 5.05 10^6/uL (4.70-6.10); RED CELL DISTRIBUTION WIDTH 13.3 % (12.0-15.0); WHITE BLOOD COUNT 14.6 x10^3/uL (4.8-10.8)
[2021-04-06] MEDS: ENOXAPARIN 40 MG/0.4 ML SYRINGE SUBQ SCH (08:35)
[2021-04-06] MEDS: ethyl alcohoL 62% SWAB AMPULE NAS SCH ×2 (08:36→21:11)
[2021-04-06] MEDS: DEXAMETHASONE 4 MG/ML VIAL IVP SCH (08:41)
[2021-04-06 08:47] LABS: CALCIUM 9.2 mg/dL (8.5-10.3); CREATININE 1.1 mg/dL (0.6-1.2)
[2021-04-06] MEDS: lisinopriL 5 MG TABLET PO SCH (08:49)
[2021-04-06] MEDS: REMDESIVIR 100MG VIAL 100 MG in SODIUM CHLORIDE 0.9% 100ML 100 ML IV SCH (08:51)
[2021-04-06] MEDS ORDERED: INSULIN GLARGINE 300 UNIT/3 ML PEN SUBQ SCH (09:00)
[2021-04-06] MEDS: AZITHROMYCIN INJ 500 MG in SODIUM CHLORIDE 0.9% 250 ML IV SCH (09:52)
--- NOTE | 2021-04-06 10:18 | PROVIDER PROGRESS NOTE ---
Subjective - Prog Note Date Prog Note Date: 04/06/21 - Subjective Pt reports feeling: Improved Subjective: Reports feeling slightly improved, less short of breath and fatigued this morning. Denies chest pain or palpitations. Notes feeling sinus congestion in his forehead and nose. Slept okay overnight but was not happy about being woken up for medications at 0230 and blood draw at 0500. Objective - Vital Signs/Intake & Output Reviewed Vital Signs: Yes Vital Signs: Vital Signs x48h Temp Pulse Resp BP BP Pulse Ox 04/06/21 08:48 116/75 04/06/21 08:00 36.6 C 54 L 16 149/72 H 93 Intake & Output: Intake & Output 04/03/21 04/04/21 04/05/21 04/06/21 23:59 23:59 23:59 23:59 Intake Total 2950.923 200 Output Total 600 Balance 2350.923 200 - Objective General Appearance: positive: No acute distress, Alert, Other (Sitting up in a chair, able to complete full sentences.) Eyes Bilateral: positive: Normal inspection, PERRL, EOMI, Conjunctivae nml, No scleral icterus ENT: positive: Dry mucous membranes Neck: positive: Nml inspection Respiratory: positive: Chest non-tender, No respiratory distress, Rales, Rhonchi, Other (Crackles in bilateral bases) Cardiovascular: positive: Regular rate & rhythm, No murmur Abdomen: positive: Non-tender, No organomegaly, Nml bowel sounds Skin: positive: Color nml Extremities: positive: Non-tender, Nml appearance Neurologic/Psychiatric: positive: Oriented x3 - Lab Results Fish Bones: 04/06/21 08:30 04/06/21 08:30 Other Labs: Lab Results x24hrs 04/06/21 04/06/21 Range/Units 08:30 08:30 WBC 14.6 H (4.8-10.8) x10^3/uL RBC 5.05 (4.70-6.10) 10^6/uL Hgb 15.0 (14.0-18.0) g/dL Hct 44.6 (42.0-52.0) % MCV 88.3 (80.0-94.0) fL MCH 29.7 (27.0-31.0) pg MCHC 33.6 (32.0-36.0) g/dL RDW 13.3 (12.0-15.0) % Plt Count 231 (130-450) 10^3/uL MPV 10.1 (7.4-11.4) fL Neut # (Auto) 13.3 H (1.5-6.6) 10^3/uL Lymph # (Auto) 0.7 L (1.5-3.5) 10^3/uL Petroleum # (Auto) 0.5 (0.0-1.0) 10^3/uL Eos # (Auto) 0.0 (0.0-0.7) 10^3/uL Baso # (Auto) 0.0 (0.0-0.1) 10^3/uL Absolute Nucleated RBC 0.00 x10^3/uL Nucleated RBC % 0.0 /100WBC Sodium 134 L (135-145) mmol/L Potassium 5.0 (3.5-5.0) mmol/L Chloride 102 (101-111) mmol/L Carbon Dioxide 20 L (21-32) mmol/L Anion Gap 12.0 (6-13) BUN 44 H (6-20) mg/dL Creatinine 1.1 (0.6-1.2) mg/dL Estimated GFR (MDRD) 66 L (>89) Glucose 380 H (70-100) mg/dL Calcium 9.2 (8.5-10.3) mg/dL ABX Reporting Has patient been on IV antibiotics over the past 48 hours?: Yes Sepsis Event Note (H) - Evaluation Current Stage of Sepsis: Ruled out Assessment/Plan - Problem List (1) Pneumonia due to COVID-19 virus Impression: Bilateral lower lobe infiltrates on chest x-ray. Afebrile overnight. WBC 14.6 today, may be due to steroids as he is on day 2 of abx. Required oxygen overnight with his bipap due to hypoxia, now on room air satting 94% lauren hernandez Reports he feels less fatigued and short of breath this morning. Has been started on Remdesivir, Decadron, Rocephin, and Azithromycin. -Remdesivir (loading dose given yesterday, now day 2) -Decadron (day 2) -Azithromycin day 2/3 -Rocephin 1g day day 2/5 (2) Hypoxia Impression: Due to pneumonia. At this time no significant JVD, mild leg edema. Does not appear to be having congestive heart failure contribution. (3) Elevated troponin Impression: Stabilized at 63. Likely due to demand ischemia given his mild congestive heart failure and hypoxemia. Previous hx of coronary angiogram 3 weeks ago, reports his coronaries were "open". Aspirin and Atorvastatin given in ED. -Continue Lovenox 85mg SQ BID -Continue Metoprolol 25mg po BID -Records requested from for recent angiogram and Cardiology notes (4) Type 2 diabetes mellitus without complication, with long-term current use of insulin Impression: Has remained hyperglycemic despite high doses of insulin, most likely due to the Decadron. Lantus increased to 40units at night, no other insulin changes made. His BUN is elevated and he is looking a little dry so 1L LR was ordered today. -A1C -Lantus 40 units daily -5 units Novolog with meals -High dose sliding scale -1L LR @ 100ml/hr x1 (5) History of acquired congestive heart failure Impression: Reports his EF now back to 55/56%. Recent coronary angiogram confirms. Takes Zestril 2.5 and no diuretics at home. Was slightly hypertensive this morning, resolved after taking his am metoprolol and lisinopril. Has been slightly bradycardic so the metoprolol was stoppled and lisinopril continued. -Continue home dose Zestril/Lisinopril (6) Hypertension Impression: On admission he had a diastolic of 133. Subsequent diastolics have been normal to mildly elevated. Started on metoprolol yesterday however he's had some episodes of bradycardia. This was stopped today and Lisinopril continued. -Stop Metoprolol -Continue Lisinopril Qualifiers: Hypertension type: primary hypertension Qualified Code(s): I10 - Essential (primary) hypertension (7) Acute kidney insufficiency Impression: Baseline renal function is unknown though his kidneys are said to have gone back to normal within weeks of the Bactrim use. Creatinine was rising but has gone down to 1.1 today, though BUN has continued to increase. His mucus membranes are dry and he is looking a little dry so will plan to give 1L LR and see how he responds given concern for volume depletion. -Follow daily labs -Avoid nephrotoxic agents -1L LR @ 100mL/hr x1 bag
[2021-04-06] MEDS ORDERED: LACTATED RINGERS 1,000 ML IV SCH (11:00)
[2021-04-06] MEDS: LOKELMA PO SCH (16:54)
[2021-04-07] MEDS: SODIUM CHLORIDE FLUSH 0.9% 10 ML SYRINGE IVP SCH ×3 (00:45→16:57)
[2021-04-07 08:22] LABS: BASOPHILS % (AUTO) 0.2 %; HCT - HEMATOCRIT 42.9 % (42.0-52.0); HGB - HEMOGLOBIN 14.1 g/dL (14.0-18.0); LYMPHOCYTES # (AUTO) 0.7 10^3/uL (1.5-3.5); LYMPHOCYTES % (AUTO) 3.6 %; MEAN CORPUSCULAR HEMOGLOBIN 29.5 pg (27.0-31.0); MEAN CORPUSCULAR HGB CONC 32.9 g/dL (32.0-36.0); MEAN CORPUSCULAR VOLUME 89.7 fL (80.0-94.0); MEAN PLATELET VOLUME 9.8 fL (7.4-11.4); MONOCYTES # (AUTO) 0.5 10^3/uL (0.0-1.0); MONOCYTES % (AUTO) 2.7 %; NEUTROPHILS # (AUTO) 17.7 10^3/uL (1.5-6.6); NEUTROPHILS % (AUTO) 92.9 %; PLT - PLATELET COUNT 241 10^3/uL (130-450); RED BLOOD COUNT 4.78 10^6/uL (4.70-6.10); RED CELL DISTRIBUTION WIDTH 13.4 % (12.0-15.0); WHITE BLOOD COUNT 19.1 x10^3/uL (4.8-10.8)
[2021-04-07 08:34] LABS: CREATININE 1.1 mg/dL (0.6-1.2); POTASSIUM 4.7 mmol/L (3.5-5.0)
[2021-04-07] MEDS: INSULIN ASPART 300 UNIT/3 ML PEN SUBQ SCH ×6 (09:12→21:11)
[2021-04-07] MEDS: lisinopriL 5 MG TABLET PO SCH (09:12)
[2021-04-07] MEDS: ENOXAPARIN 40 MG/0.4 ML SYRINGE SUBQ SCH (09:14)
[2021-04-07] MEDS: DEXAMETHASONE 4 MG/ML VIAL IVP SCH (09:14)
[2021-04-07] MEDS: INSULIN GLARGINE 300 UNIT/3 ML PEN SUBQ SCH (09:15)
[2021-04-07] MEDS: ethyl alcohoL 62% SWAB AMPULE NAS SCH ×2 (09:16→21:12)
[2021-04-07] MEDS: REMDESIVIR 100MG VIAL 100 MG in SODIUM CHLORIDE 0.9% 100ML 100 ML IV SCH (09:17)
[2021-04-07] MEDS: LOKELMA PO SCH (09:20)
[2021-04-07] MEDS: AZITHROMYCIN INJ 500 MG in SODIUM CHLORIDE 0.9% 250 ML IV SCH (09:36)
--- NOTE | 2021-04-07 11:15 | PROVIDER PROGRESS NOTE ---
Subjective - Prog Note Date Prog Note Date: 04/07/21 - Subjective Pt reports feeling: No change Subjective: Reports he slept well overnight other than a few interruptions. His did not bring in his bipap as he prefers to use oxygen while he is here. 2L NC overnight maintained him >92%. He reports feeling about the same as yesterday, does not feel worse. Continues to cough but is able to hold a conversation without stopping for breath. No n/v. Has been able to get up and walk to the bathroom and around the room. Objective - Vital Signs/Intake & Output Reviewed Vital Signs: Yes Vital Signs: Vital Signs x48h Temp Pulse Pulse Resp BP Pulse Ox 04/07/21 10:30 36.5 C 44 L 16 93 04/07/21 08:00 36.5 C 43 L 14 154/56 H 93 Intake & Output: Intake & Output 04/04/21 04/05/21 04/06/21 04/07/21 23:59 23:59 23:59 23:59 Intake Total 2950.923 3210 490 Output Total 600 675 Balance 2350.923 2535 490 - Objective General Appearance: positive: No acute distress, Alert, Other (Sitting up in bed eating breakfast, no acute distress.) Eyes Bilateral: positive: Normal inspection, PERRL, Conjunctivae nml, No scleral icterus ENT: positive: ENT inspection nml, No signs of dehydration Respiratory: positive: Chest non-tender, No respiratory distress, Other (continues to have crackles in the bilateral bases) Cardiovascular: positive: Regular rate & rhythm, No murmur, No gallop Abdomen: positive: Non-tender, No organomegaly, Nml bowel sounds, No distention Skin: positive: Color nml Extremities: positive: Non-tender, Full ROM Neurologic/Psychiatric: positive: Oriented x3, CN's nml (2-12) - Lab Results Fish Bones: 04/07/21 08:17 04/07/21 08:17 Other Labs: Lab Results x24hrs 04/07/21 04/07/21 Range/Units 08:17 08:17 WBC 19.1 H (4.8-10.8) x10^3/uL RBC 4.78 (4.70-6.10) 10^6/uL Hgb 14.1 (14.0-18.0) g/dL Hct 42.9 (42.0-52.0) % MCV 89.7 (80.0-94.0) fL MCH 29.5 (27.0-31.0) pg MCHC 32.9 (32.0-36.0) g/dL RDW 13.4 (12.0-15.0) % Plt Count 241 (130-450) 10^3/uL MPV 9.8 (7.4-11.4) fL Neut # (Auto) 17.7 H (1.5-6.6) 10^3/uL Lymph # (Auto) 0.7 L (1.5-3.5) 10^3/uL [place] # (Auto) 0.5 (0.0-1.0) 10^3/uL Eos # (Auto) 0.0 (0.0-0.7) 10^3/uL Baso # (Auto) 0.0 (0.0-0.1) 10^3/uL Absolute Nucleated RBC 0.00 x10^3/uL Nucleated RBC % 0.0 /100WBC Sodium 137 (135-145) mmol/L Potassium 4.7 (3.5-5.0) mmol/L Chloride 104 (101-111) mmol/L Carbon Dioxide 22 (21-32) mmol/L Anion Gap 11.0 (6-13) BUN 41 H (6-20) mg/dL Creatinine 1.1 (0.6-1.2) mg/dL Estimated GFR (MDRD) 66 L (>89) Glucose 352 H (70-100) mg/dL Calcium 9.0 (8.5-10.3) mg/dL ABX Reporting Has patient been on IV antibiotics over the past 48 hours?: Yes Sepsis Event Note (H) - Evaluation Current Stage of Sepsis: Ruled out Assessment/Plan - Problem List (1) Pneumonia due to COVID-19 virus Impression: Bilateral lower lobe infiltrates on chest x-ray on admission. Has been afebrile x2 days. WBC continues to increase and is 19.1 today, may be due to steroids as he is on day 2 of abx. Neutrophils are also rising. He does not feel worse and has not required O2 other than at night. If he spikes a fever will plan to alcocer culture and possibly broaden antibiotics but for now will continue to monitor. Required oxygen overnight with his bipap due to hypoxia, now on room air satting 94% this morning. Reports he feels less fatigued and short of breath this morning. Remains on Remdesivir, Decadron, Rocephin, and Azithromycin. -Remdesivir (day 10/05) -Decadron (day 10/10) -Azithromycin (day 10/03) -Rocephin 1g day (day 10/05) (2) Hypoxia Impression: Due to pneumonia. Stable, only requiring oxgyen in the evenings. At this time no significant JVD, no leg edema. Does not appear to be having congestive heart failure contribution. (3) Elevated troponin Impression: Stable. Likely due to demand ischemia given his mild congestive heart failure and hypoxemia. Previous hx of coronary angiogram 3 weeks ago, reports his coronaries were "open". Aspirin and Atorvastatin given in ED. -Continue Lovenox 85mg SQ BID -Records requested yesterday from for recent angiogram and Cardiology notes, will try to obtain again today (4) Type 2 diabetes mellitus without complication, with long-term current use of insulin Impression: Has remained hyperglycemic despite high doses of insulin, most likely due to the Decadron. He attributes last night and this morning's high doses to eating a ham sandwich around 2300 last evening without insulin coverage-he does not normally eat bread and believes this may have caused his sugars to spike. He is on a carb managed diet but the nutritional choices for him have had a large amount of carbs he does not eat at home per his report. Lantus increased to 40units yesterday. Continued to have high blood sugars to 385 at lunch today so I made the following adjustments: -Lantus 10units x1 at lunch -Lantus 55 units daily, starting tomorrow -10 units Novolog with meals Continue: -A1C pending -High dose sliding scale (5) History of acquired congestive heart failure Impression: Reports his EF now back to 55/56%. Recent coronary angiogram confirms. Takes Zestril 2.5 and no diuretics at home. Has been slightly bradycardic and metoproplol was stopped yesterday with home meds resumed. Received 1L of LR for dehydration yesterday, appears to have tolerated well. Does not appear to be having a CHF exacerbation at this time. No edema, no JVD. -Continue home dose Zestril/Lisinopril (6) Hypertension Impression: On admission he had a diastolic of 133. Subsequent diastolics have been normal to mildly elevated. Metoprolol was discontinued yesterday and home meds continued. Has remained mildly hypertensive to SBP 140s-150s with HRs 40-50s. Will place on 24 hour telemetry to ensure he stays in sinus and may go up on his lisinopril tomorrow. Also checked a TSH, which was normal. -Continue Lisinopril -24 hour telemetry Qualifiers: Hypertension type: primary hypertension Qualified Code(s): I10 - Essential (primary) hypertension (7) Acute kidney insufficiency Impression: Appears stable. Baseline renal function is unknown though his kidneys are said to have gone back to normal within weeks of the Bactrim use. He was given 1L LR yesterday for signs of dehydration. Today his creatinine remains 1.1, BUN has decreased to 41 though remains elevated and this may be due to COVID rather than SOMMER. Mucus membranes are moist today and he is having appropriate output. Will continue to monitor. -Follow daily labs -Avoid nephrotoxic agents
[2021-04-07] MEDS ORDERED: INSULIN GLARGINE 300 UNIT/3 ML PEN SUBQ SCH (12:40)
[2021-04-07 13:49] LABS: ESTIMATED AVERAGE GLUCOSE 180 mg/dL (70-100); HEMOGLOBIN A1c% 7.9 % (4.27-6.07)
[2021-04-07] MEDS: cefTRIAXone 1 GM in SODIUM CHLORIDE 0.9% MINIBAG 100 ML IV SCH (21:14)
[2021-04-08] MEDS: SODIUM CHLORIDE FLUSH 0.9% 10 ML SYRINGE IVP SCH ×3 (01:06→16:57)
[2021-04-08] MEDS: SODIUM CHLORIDE FLUSH 0.9% 10 ML SYRINGE IVP PRN (01:07)
[2021-04-08 08:16] LABS: BASOPHILS % (AUTO) 0.1 %; HCT - HEMATOCRIT 41.6 % (42.0-52.0); HGB - HEMOGLOBIN 13.6 g/dL (14.0-18.0); LYMPHOCYTES # (AUTO) 0.8 10^3/uL (1.5-3.5); LYMPHOCYTES % (AUTO) 5.1 %; MEAN CORPUSCULAR HEMOGLOBIN 29.4 pg (27.0-31.0); MEAN CORPUSCULAR HGB CONC 32.7 g/dL (32.0-36.0); MEAN CORPUSCULAR VOLUME 89.8 fL (80.0-94.0); MEAN PLATELET VOLUME 10.3 fL (7.4-11.4); MONOCYTES # (AUTO) 0.5 10^3/uL (0.0-1.0); MONOCYTES % (AUTO) 3.5 %; NEUTROPHILS # (AUTO) 13.6 10^3/uL (1.5-6.6); NEUTROPHILS % (AUTO) 90.6 %; PLT - PLATELET COUNT 246 10^3/uL (130-450); RED BLOOD COUNT 4.63 10^6/uL (4.70-6.10); RED CELL DISTRIBUTION WIDTH 13.6 % (12.0-15.0)
[2021-04-08 08:22] LABS: CALCIUM 8.9 mg/dL (8.5-10.3); POTASSIUM 4.6 mmol/L (3.5-5.0)
[2021-04-08] MEDS: INSULIN ASPART 300 UNIT/3 ML PEN SUBQ SCH ×7 (09:03→21:04)
[2021-04-08] MEDS: INSULIN GLARGINE 300 UNIT/3 ML PEN SUBQ SCH (09:04)
[2021-04-08] MEDS: LOKELMA PO SCH (09:06)
[2021-04-08] MEDS: REMDESIVIR 100MG VIAL 100 MG in SODIUM CHLORIDE 0.9% 100ML 100 ML IV SCH (09:07)
[2021-04-08] MEDS: ENOXAPARIN 40 MG/0.4 ML SYRINGE SUBQ SCH (09:07)
[2021-04-08] MEDS: DEXAMETHASONE 4 MG/ML VIAL IVP SCH (09:07)
[2021-04-08] MEDS: ethyl alcohoL 62% SWAB AMPULE NAS SCH ×2 (09:07→21:05)
[2021-04-08] MEDS: lisinopriL 5 MG TABLET PO SCH (09:08)
--- NOTE | 2021-04-08 11:06 | PROVIDER PROGRESS NOTE ---
Subjective - Prog Note Date Prog Note Date: 04/08/21 - Subjective Pt reports feeling: Improved Subjective: Reports he slept better overnight and is feeling slightly better overall. Briefly required oxygen last evening with desaturation to high 80s. Nursing notes he desaturates when eating but recovers easily. He denies shortness of breath this morning and feels "comfortable". Tolerating his meals, no n/v. Blood sugars better controlled overnight, low to mid 200s per his report. Denies any pain or other concerns. Objective - Vital Signs/Intake & Output Reviewed Vital Signs: Yes Vital Signs: Vital Signs x48h Temp Pulse Resp BP Pulse Ox 04/08/21 08:00 36.5 C 55 L 18 158/75 H 97 Intake & Output: Intake & Output 04/05/21 04/06/21 04/07/21 04/08/21 23:59 23:59 23:59 23:59 Intake Total 2950.923 3210 1820 340 Output Total 600 675 450 400 Balance 2350.923 2535 1370 -60 - Objective General Appearance: positive: No acute distress, Alert, Other (Sitting up in bed in no acute distress, slightly fatigued appearing) Eyes Bilateral: positive: Normal inspection, PERRL, Conjunctivae nml, No scleral icterus ENT: positive: ENT inspection nml, No signs of dehydration Neck: positive: Nml inspection Respiratory: positive: Chest non-tender, No respiratory distress, Other (Crackles in the bases) Cardiovascular: positive: Regular rate & rhythm, No murmur, No gallop Abdomen: positive: Non-tender, No organomegaly, Nml bowel sounds Skin: positive: Pallor Extremities: positive: Full ROM, Nml appearance Neurologic/Psychiatric: positive: Oriented x3, CN's nml (2-12) - Lab Results Fish Bones: 04/08/21 07:59 04/08/21 07:59 Other Labs: Lab Results x24hrs 04/08/21 04/08/21 04/07/21 Range/Units 07:59 07:59 08:17 WBC 15.0 H (4.8-10.8) x10^3/uL RBC 4.63 L (4.70-6.10) 10^6/uL Hgb 13.6 L (14.0-18.0) g/dL Hct 41.6 L (42.0-52.0) % MCV 89.8 (80.0-94.0) fL MCH 29.4 (27.0-31.0) pg MCHC 32.7 (32.0-36.0) g/dL RDW 13.6 (12.0-15.0) % Plt Count 246 (130-450) 10^3/uL MPV 10.3 (7.4-11.4) fL Neut # (Auto) 13.6 H (1.5-6.6) 10^3/uL Lymph # (Auto) 0.8 L (1.5-3.5) 10^3/uL [place] # (Auto) 0.5 (0.0-1.0) 10^3/uL Eos # (Auto) 0.0 (0.0-0.7) 10^3/uL Baso # (Auto) 0.0 (0.0-0.1) 10^3/uL Absolute Nucleated RBC 0.00 x10^3/uL Nucleated RBC % 0.0 /100WBC Sodium 139 (135-145) mmol/L Potassium 4.6 (3.5-5.0) mmol/L Chloride 106 (101-111) mmol/L Carbon Dioxide 23 (21-32) mmol/L Anion Gap 10.0 (6-13) BUN 35 H (6-20) mg/dL Creatinine 1.0 (0.6-1.2) mg/dL Estimated GFR (MDRD) 73 L (>89) Glucose 250 H (70-100) mg/dL Estimat Average Glucose (70-100) mg/dL Hemoglobin A1c % (4.27-6.07) % Calcium 8.9 (8.5-10.3) mg/dL TSH 1.42 (0.34-5.60) uIU/mL 04/07/21 Range/Units 08:17 WBC (4.8-10.8) x10^3/uL RBC (4.70-6.10) 10^6/uL Hgb (14.0-18.0) g/dL Hct (42.0-52.0) % MCV (80.0-94.0) fL MCH (27.0-31.0) pg MCHC (32.0-36.0) g/dL RDW (12.0-15.0) % Plt Count (130-450) 10^3/uL MPV (7.4-11.4) fL Neut # (Auto) (1.5-6.6) 10^3/uL Lymph # (Auto) (1.5-3.5) 10^3/uL [place] # (Auto) (0.0-1.0) 10^3/uL Eos # (Auto) (0.0-0.7) 10^3/uL Baso # (Auto) (0.0-0.1) 10^3/uL Absolute Nucleated RBC x10^3/uL Nucleated RBC % /100WBC Sodium (135-145) mmol/L Potassium (3.5-5.0) mmol/L Chloride (101-111) mmol/L Carbon Dioxide (21-32) mmol/L Anion Gap (6-13) BUN (6-20) mg/dL Creatinine (0.6-1.2) mg/dL Estimated GFR (MDRD) (>89) Glucose (70-100) mg/dL Estimat Average Glucose 180 H (70-100) mg/dL Hemoglobin A1c % 7.9 H (4.27-6.07) % Calcium (8.5-10.3) mg/dL TSH (0.34-5.60) uIU/mL ABX Reporting Has patient been on IV antibiotics over the past 48 hours?: Yes Sepsis Event Note (H) - Evaluation Current Stage of Sepsis: Ruled out Assessment/Plan - Problem List (1) Pneumonia due to COVID-19 virus Impression: Bilateral lower lobe infiltrates on chest x-ray on admission. Has been afebrile since 04/05. WBC trending down, 15 from 19 yesterday. Likely elevated due to co mbination of pneumonia and steroid use, reassuring that it is trending down and he remains afebrile. Reports feeling improved over yesterday though continues to appear slightly fatigued. Supplemental O2 has been used in place of his bipap at night, used occasionally during the day when he is napping or when he desaturates during meals. Easily recovers when awake. Remains on Remdesivir, Decadron, Rocephin, received last dose of Azithromycin yesterday 04/07. -Remdesivir (day 11/05) -Decadron (day 11/10) -Azithromycin (last dose 04/07) -Rocephin 1g day (day 11/05) (2) Hypoxia Impression: Due to pneumonia. Stable, only requiring oxgyen in the evenings/overnight as he uses bipap at home and does not want to use it while in the hospital. At this time no significant JVD, no leg edema. Does not appear to be having congestive heart failure contribution. (3) Elevated troponin Impression: Stable. Likely due to demand ischemia given his mild congestive heart failure and hypoxemia. Previous hx of coronary angiogram 3 weeks ago, reports his coronaries were "open". Aspirin and Atorvastatin given in ED. Was on telemetry for 24 hours overnight, has remained in sinus александр with occasional PVCs and PACs. Have not been able to receive the Cardiology records yet, possibly due to the holiday weekend. Given that he has remained stable without cardiac complaints and the troponin was stable at 63 will continue to monitor for now. -Continue Lovenox 85mg SQ BID (4) Type 2 diabetes mellitus without complication, with long-term current use of insulin Impression: Has remained hyperglycemic despite high doses of insulin, most likely due to the Decadron. His blood sugars have been low to mid 200s since increasing his Lantus and meal time insulin, so will not make any changes today. The hyperglycemia is likely due to a combination of the food he has been eating and the steroids. He has been more careful with his food intake and stopped eating bread. A1C 7.9%. Continue: -Lantus 55 units daily -10 units Novolog with meals -High dose sliding scale (5) History of acquired congestive heart failure Impression: Reports his EF now back to 55/56%. Recent coronary angiogram confirms per report. Takes Zestril 2.5 and no diuretics at home. Has been slightly bradycardic but asymptomatic. Does not appear to be having a CHF exacerbation at this time. No edema, no JVD. -Continue home dose Zestril/Lisinopril (6) Hypertension Impression: On admission he had a diastolic of 133. Subsequent diastolics have been normal to mildly elevated. Metoprolol was discontinued yesterday and home meds continued. Has remained mildly hypertensive to SBP 140s-150s with HRs 40-50s. Telemetry was placed yesterday and has remained sinus rhythm with occasional PVC/PACs. Asymptomatic so will stop the telemetry this afternoon. -Continue Lisinopril Qualifiers: Hypertension type: primary hypertension Qualified Code(s): I10 - Essential (primary) hypertension (7) Acute kidney insufficiency Impression: Appears stable. Baseline renal function is unknown though his kidneys are said to have gone back to normal within weeks of the Bactrim use. Creatinine is 1.0 today and normal, BUN continues to decrease though remains elevated and this may be due to COVID rather than SOMMER. Mucus membranes are moist today and he is having appropriate output. Will continue to monitor. -Follow daily labs -Avoid nephrotoxic agents
[2021-04-08] MEDS ORDERED: OXYMETAZOLINE HCL 100 SPRAYS BOTTLE NAS PRN (13:41)
[2021-04-08] MEDS: cefTRIAXone 1 GM in SODIUM CHLORIDE 0.9% MINIBAG 100 ML IV SCH (21:05)
[2021-04-09] MEDS: SODIUM CHLORIDE FLUSH 0.9% 10 ML SYRINGE IVP SCH ×2 (00:09→08:55)
[2021-04-09] MEDS: SODIUM CHLORIDE FLUSH 0.9% 10 ML SYRINGE IVP PRN ×2 (00:09→08:56)
--- NOTE | 2021-04-09 07:20 | PROVIDER PROGRESS NOTE ---
Subjective - Prog Note Date Prog Note Date: 04/09/21 - Subjective Subjective: SEE DISCHARGE SUMMARY THIS DATE Current Medications - Current Medications Current Medications: Active Medications Generic Name Dose Route Start Last Admin Trade Name Freq PRN Reason Stop Dose Admin Acetaminophen 650 mg 04/05/21 01:53 Acetaminophen 325 Mg Tablet PO Q4HR PRN Pain 1 to 4 Alcohol 1 amp 04/05/21 09:00 04/08/21 21:05 Ethyl Alcohol 62% Swab Ampule ZACHARY 1 amp BID ANASTACIA Administration Dexamethasone 6 mg 04/05/21 01:56 04/08/21 09:07 Dexamethasone 4 Mg/Ml Vial IVP 6 mg DAILY ANASTACIA Administration Enoxaparin Sodium 40 mg 04/05/21 09:00 04/08/21 09:07 Enoxaparin 40 Mg/0.4 Ml Syringe SUBQ 40 mg DAILY ANASTACIA Administration Remdesivir 100 mg/ Sodium 100 mls @ 200 mls/hr 04/06/21 09:00 04/08/21 09:56 Chloride IV 04/09/21 09:29 Infused DAILY ANASTACIA Infusion Ceftriaxone Sodium 1 gm/ 100 mls @ 200 mls/hr 04/06/21 21:00 04/08/21 21:35 Sodium Chloride IV Infused QPM ANASTACIA Infusion Insulin Aspart 3 - 11 unit 04/05/21 17:00 04/08/21 21:04 Insulin Aspart 300 Unit/3 Ml Pen SUBQ 9 unit 0800,1200,1700,2100 ANASTACIA Administration Protocol Insulin Aspart 10 unit 04/07/21 17:00 04/08/21 16:56 Insulin Aspart 300 Unit/3 Ml Pen SUBQ 10 unit TIDWM ANASTACIA Administration Insulin Glargine 55 unit 04/08/21 09:00 04/08/21 09:04 Insulin Glargine 300 Unit/3 Ml Pen SUBQ 55 unit DAILY ANASTACIA Administration Lisinopril 2.5 mg 04/05/21 22:00 04/08/21 09:08 Lisinopril 5 Mg Tablet PO 2.5 mg DAILY ANASTACIA Administration Ondansetron HCl 4 mg 04/05/21 01:53 Ondansetron Odt 4 Mg Tablet TL Q6HR PRN Nausea / Vomiting Ondansetron HCl 4 mg 04/05/21 01:53 Ondansetron 4 Mg/2 Ml Vial IVP Q6HR PRN Nausea / Vomiting Oxycodone HCl 5 mg 04/05/21 01:53 Oxycodone 5 Mg Tablet PO Q4HR PRN Pain 5 to 7 Lokelma 1 each 04/06/21 16:00 04/08/21 09:06 PO 1 each DAILY ANASTACIA Administration Sodium Chloride 10 ml 04/05/21 01:53 04/09/21 00:09 Sodium Chloride Flush 0.9% 10 Ml Syringe IVP 10 ml PRN PRN Administration NEEDED PER PROVIDER ORDERS Sodium Chloride 10 ml 04/05/21 09:00 04/09/21 00:09 Sodium Chloride Flush 0.9% 10 Ml Syringe IVP 10 ml 0100,0900,1700 ANASTACIA Administration Tamsulosin HCl 0.4 mg 04/09/21 09:00 Tamsulosin 0.4 Mg Capsule PO BID ANASTACIA Aspirin [Aspirin EC] 162 mg PO DAILY 04/05/21 Atorvastatin [Lipitor] 20 mg PO DAILY 04/05/21 Insulin Aspart [Novolog] 2 units SQ DAILY 04/05/21 Insulin Glargine [Lantus Solostar] 15 unit SQ DAILY 04/05/21 Lisinopril [Zestril] 2.5 mg PO DAILY 04/05/21 Sitagliptin Phosphate [Januvia] 50 mg PO DAILY 04/05/21 Sodium Zirconium Cyclosilicate [Lokelma] 5 gm PO DAILY 04/09/21 Tamsulosin [Flomax] 0.4 mg PO BID 04/09/21 Objective - Vital Signs/Intake & Output Reviewed Vital Signs: Yes Vital Signs: afebrile since admit x isolated 04/05 early am 38.0 Intermittently on 02 at night Vital Signs x48h Temp Pulse Resp BP Pulse Ox 04/09/21 00:03 36.5 C 84 18 161/92 H 92 Intake & Output: Intake & Output 04/06/21 04/07/21 04/08/21 04/09/21 23:59 23:59 23:59 23:59 Intake Total 3210 1820 1920 Output Total 675 450 650 Balance 2535 1370 1270 - Lab Results Fish Bones: 04/09/21 08:13 04/09/21 08:13 Other Labs: Lab Results x24hrs 04/08/21 04/08/21 Range/Units 07:59 07:59 WBC 15.0 H (4.8-10.8) x10^3/uL RBC 4.63 L (4.70-6.10) 10^6/uL Hgb 13.6 L (14.0-18.0) g/dL Hct 41.6 L (42.0-52.0) % MCV 89.8 (80.0-94.0) fL MCH 29.4 (27.0-31.0) pg MCHC 32.7 (32.0-36.0) g/dL RDW 13.6 (12.0-15.0) % Plt Count 246 (130-450) 10^3/uL MPV 10.3 (7.4-11.4) fL Neut # (Auto) 13.6 H (1.5-6.6) 10^3/uL Lymph # (Auto) 0.8 L (1.5-3.5) 10^3/uL [place] # (Auto) 0.5 (0.0-1.0) 10^3/uL Eos # (Auto) 0.0 (0.0-0.7) 10^3/uL Baso # (Auto) 0.0 (0.0-0.1) 10^3/uL Absolute Nucleated RBC 0.00 x10^3/uL Nucleated RBC % 0.0 /100WBC Sodium 139 (135-145) mmol/L Potassium 4.6 (3.5-5.0) mmol/L Chloride 106 (101-111) mmol/L Carbon Dioxide 23 (21-32) mmol/L Anion Gap 10.0 (6-13) BUN 35 H (6-20) mg/dL Creatinine 1.0 (0.6-1.2) mg/dL Estimated GFR (MDRD) 73 L (>89) Glucose 250 H (70-100) mg/dL Calcium 8.9 (8.5-10.3) mg/dL Sepsis Event Note (H) - Evaluation Current Stage of Sepsis: Ruled out Assessment/Plan - Problem List (1) Pneumonia due to COVID-19 virus Impression: Per prior notes; "Bilateral lower lobe infiltrates on chest x-ray on admission.", tho formal read on 04/05 by radiology; Left basilar atelectasis vs pneumonia. Has been afebrile since 04/05. Leukocytosis developed AFTER dexamethasone started. 6.6 /, 8.7 9/3 14.6 9/4, 19.1 9/5, 15.0 9/6, 16.7 today Has not hadue to combination of pneumonia and steroid use, reassuring that it is trending down and he remains afebrile. Reports feeling improved over yesterday though continues to appear slightly fatigued. Supplemental O2 has been used in place of his bipap at night, used occasionally during the day when he is napping or when he desaturates during meals. Easily recovers when awake. Remains on Remdesivir, Decadron, Rocephin, received last dose of Azithromycin yesterday 04/07. -Remdesivir (day 11/05) -Decadron (day 11/10) -Azithromycin (last dose 04/07) -Rocephin 1g day (day 11/05) (2) Hypoxia Impression: Due to pneumonia. Stable, only requiring oxgyen in the evenings/overnight as he uses bipap at home and does not want to use it while in the hospital. At this time no significant JVD, no leg edema. Does not appear to be having congestive heart failure contribution. (3) Elevated troponin Impression: Stable. Likely due to demand ischemia given his mild congestive heart failure and hypoxemia. Previous hx of coronary angiogram 3 weeks ago, reports his coronaries were "open". Aspirin and Atorvastatin given in ED. Was on telemetry for 24 hours overnight, has remained in sinus александр with occasional PVCs and PACs. Have not been able to receive the Cardiology records yet, possibly due to the holiday weekend. Given that he has remained stable without cardiac complaints and the troponin was stable at 63 will continue to monitor for now. -Continue Lovenox 85mg SQ BID (4) Type 2 diabetes mellitus without complication, with long-term current use of insulin Iagrogenic hyperglycemia due to dexamethasone/ had been in mid 200s Improved control over several days w/ titration from home regimen Last Normally on; Reasonable control now 140-180 on ; -Lantus 55 units daily -10 units Novolog with meals -High dose sliding scale Wont be d/c'd on decadron as per idSA/CDC recs, so should be able to return to homeregimen by d/c A1C 7.9%. (5) History of acquired congestive heart failure Impression: Reports his EF now back to 55/56%. Recent coronary angiogram confirms per report. Takes Zestril 2.5 and no diuretics at home. Has been slightly bradycardic but asymptomatic. Does not appear to be having a CHF exacerbation at this time. No edema, no JVD. -Continue home dose Zestril/Lisinopril (6) Hypertension Impression: On admission he had a diastolic of 133. Subsequent diastolics have been normal to mildly elevated. Metoprolol was discontinued yesterday and home meds continued. Has remained mildly hypertensive to SBP 140s-150s with HRs 40-50s. Telemetry was placed yesterday and has remained sinus rhythm with occasional PVC/PACs. Asymptomatic so will stop the telemetry this afternoon. -Continue Lisinopril Qualifiers: Hypertension type: primary hypertension Qualified Code(s): I10 - Essential (primary) hypertension (7) Acute kidney insufficiency Impression: Appears stable. Baseline renal function is unknown though his kidneys are said to have gone back to normal within weeks of the Bactrim use. Creatinine is 1.0 today and normal, BUN continues to decrease though remains elevated and this may be due to COVID rather than SOMMER. Mucus membranes are moist today and he is having appropriate output. Will continue to monitor. -Follow daily labs -Avoid nephrotoxic agents
[2021-04-09 07:58] VITALS: BP 156/71
[2021-04-09 08:22] LABS: BASOPHILS % (AUTO) 0.1 %; HCT - HEMATOCRIT 45.5 % (42.0-52.0); HGB - HEMOGLOBIN 15.1 g/dL (14.0-18.0); LYMPHOCYTES # (AUTO) 1.2 10^3/uL (1.5-3.5); LYMPHOCYTES % (AUTO) 6.9 %; MEAN CORPUSCULAR HEMOGLOBIN 29.9 pg (27.0-31.0); MEAN CORPUSCULAR HGB CONC 33.2 g/dL (32.0-36.0); MEAN CORPUSCULAR VOLUME 90.1 fL (80.0-94.0); MEAN PLATELET VOLUME 9.9 fL (7.4-11.4); MONOCYTES # (AUTO) 0.9 10^3/uL (0.0-1.0); MONOCYTES % (AUTO) 5.1 %; NEUTROPHILS # (AUTO) 14.6 10^3/uL (1.5-6.6); NEUTROPHILS % (AUTO) 87.4 %; PLT - PLATELET COUNT 310 10^3/uL (130-450); RED BLOOD COUNT 5.05 10^6/uL (4.70-6.10); RED CELL DISTRIBUTION WIDTH 13.6 % (12.0-15.0); WHITE BLOOD COUNT 16.7 x10^3/uL (4.8-10.8)
[2021-04-09 08:32] LABS: CALCIUM 9.5 mg/dL (8.5-10.3); POTASSIUM 4.6 mmol/L (3.5-5.0)
[2021-04-09] MEDS: lisinopriL 5 MG TABLET PO SCH (08:48)
[2021-04-09] MEDS: ENOXAPARIN 40 MG/0.4 ML SYRINGE SUBQ SCH (08:49)
[2021-04-09] MEDS: ethyl alcohoL 62% SWAB AMPULE NAS SCH (08:49)
[2021-04-09] MEDS: LOKELMA PO SCH (08:50)
[2021-04-09] MEDS: INSULIN ASPART 300 UNIT/3 ML PEN SUBQ SCH ×4 (08:51→12:27)
[2021-04-09] MEDS: INSULIN GLARGINE 300 UNIT/3 ML PEN SUBQ SCH (08:55)
[2021-04-09] MEDS: DEXAMETHASONE 4 MG/ML VIAL IVP SCH (08:55)
[2021-04-09] MEDS: REMDESIVIR 100MG VIAL 100 MG in SODIUM CHLORIDE 0.9% 100ML 100 ML IV SCH (08:58)
[2021-04-09] MEDS ORDERED: TAMSULOSIN 0.4 MG CAPSULE PO SCH (09:00)
--- NOTE | 2021-04-09 12:50 | DISCHARGE SUMMARY ---
Discharge Summary Admit Date: 04/05/21 Discharge Date: 04/09/21 Discharging Provider: REED Boo Primary Care Provider: Dr. Jessi Ohara, [facility] , [facility] cardiology Code Status: Attempt Resuscitation Condition at Discharge: Stable Discharge Disposition: 01 Home, Self Care Discharge Facility Name: [facility] - DIAGNOSES Admission Diagnoses: 1) Pneumonia due to Covid -19 2) Hypoxia 3) Elevated troponin 4) DM2, on insulin 5) History of CHF most recent EF 55-60% 6) Hypertension ) Acute kidney insufficiency - ALLERGIES Allergies/Adverse Reactions: Allergies Allergy/AdvReac Type Severity Reaction Status Date / Time metoprolol Allergy Rash Verified 04/09/21 12:25 sulfamethoxazole Allergy Unknown Verified 04/05/21 00:33 [From Bactrim] Tetanus Vaccines and Toxoid Allergy Unknown Verified 04/05/21 00:33 trimethoprim [From Bactrim] Allergy Unknown Verified 04/05/21 00:33 - MEDICATIONS Home Medications: Ambulatory Orders Medication Instructions Recorded Confirmed Aspirin [Aspirin EC] 162 mg PO DAILY 04/05/21 04/05/21 Atorvastatin [Lipitor] 20 mg PO DAILY 04/05/21 04/05/21 Insulin Aspart [Novolog] 2 units SQ DAILY 04/05/21 04/05/21 Insulin Glargine [Lantus Solostar] 15 unit SQ DAILY 04/05/21 04/05/21 Lisinopril [Zestril] 2.5 mg PO DAILY 04/05/21 04/05/21 Sitagliptin Phosphate [Januvia] 50 mg PO DAILY 04/05/21 04/05/21 Sodium Zirconium Cyclosilicate 5 gm PO DAILY 04/09/21 04/09/21 [Lokelma] Tamsulosin [Flomax] 0.4 mg PO BID 04/09/21 04/09/21 - LABS Result Diagrams: 04/09/21 08:13 04/09/21 08:13 - SEPSIS Current Stage of Sepsis: Ruled out
--- NOTE | 2021-04-09 12:52 | Discharge Plan ---
Discharge Plan Problem Reviewed?: Yes Disposition: Home, Self Care Condition: Stable Prescriptions: bisoproloL fumarate [Bisoprolol Fumarate] 2.5 mg PO DAILY #30 tablet Activity Restrictions: Additional Comments (quarantine x 72 hrs as per printed covid form) Shower Restrictions: No Driving Restrictions: No Assistance Devices: Other (ambulatory) Health Concerns: Covid 19; You came to the hospital with worsening cough , shortness of breath, anorexia, fever at home after having tested positive for covid on 03/24 as an outpatient. In the ED you were afebrile, room air oxygenation was still ok, , Chest x ray had possible Left lower lobe infiltrate and you had coarse breath sounds on both sidees. .you were very fatigued,. You are normally on bipap at nightfor sleep apnea. Your xray did not have the appearance of covid pneumonia, but with the xray findings and lung exam you were conservatively treated for covid with 5 days of remdesivir(complete), and dexamethasone. You also were treated for a possibly superimposed pneumonia. After you were admitted, your white blood cell count increased but that was more liklely due to the steroid (dexamethasone) You have not had a worsening respiratory status needing more oxygen or transfer to higher acuity. An ambulatory oxygen test was done by RT on 04/09. Your lowest oxygen saturation was 90% and you feel well enough to return home. Continue to quarantine for 3 days. Troponin (heart enzymes); were slightly elevated on admission, but stayed flat. Not consistent with an acute cardiac event Continue on your home regimen of Aspirin, zestril, bisoprolol and statin for your known heart disease Diabetes and elevated blood glucose due to steroid/dexamethasone; Your sugars w ere elevated due to the steroid. This should be self limited with the stopping of the dexamethasone today 04/09. Return to your home regimen of long acting insulin with mealbased and correctional short acting. For 1-2 more days you likley will be less controlled than usual. Drink plenty of unsweetened liquid to help keep the sugars down Bradycardia; your heart rate at rest was lower than 40 (even off your bisoprolol; beta gwen was held after admission due to bradycardia. A EKG/rhythm strip on 04/09 was ~ 50 at the lowest. It did appropriately increase with activity. We did discuss w/ nursing staff at [facility] cardiology clinic . this has been noted in your records. OK to resume your bisoprolol. Inform your space technologist if heart rate often lower than 50 at rest. REcent acute kidney injury Your labs showed you to be a little "dry" 44/1.3 but 32/1.0 on discharge. Creatinine in normal range. As above, with elevated glucose , drink adequate liquids during the day to compensate for elevated glucose on the decadron No Smoking: If you smoke, Please STOP! Call for help. Follow-up with: BIRDIE HOLDEN MD [Primary Care Provider] - 1 Week
--- NOTE | 2021-04-09 15:44 | DISCHARGE SUMMARY ---
Discharge Summary Admit Date: 04/05/21 Discharge Date: 04/09/21 Discharging Provider: REED Boo Primary Care Provider: Dr Jessi Ohara ([facility]) client solutions manager at [facility] Code Status: Attempt Resuscitation Condition at Discharge: Stable Discharge Disposition: 01 Home, Self Care Discharge Facility Name: On [facility] Of [facility] - DIAGNOSES Admission Diagnoses: Pneumonia due to Covid 19 virus Hypoxia Elevated troponin DM2 without complication with group home use of insulin History of congestive heart failure Hypertension Acute kidney insufficiency Discharge Diagnoses with Status of Each Condition: -Pneumonia due to Covid 19 virus; treated, stable for discharge, did not require ICU for higher level care -Hypoxia; no hypoxia, ambulatory test 04/09; persisted over 90%, no subjective CASTILLO -Elevated troponin; troponin curve flat, no acute coronary ischemia suspected 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 He has chest tightness but denies chest pain. There is no pleuritic chest pain. There is no nausea, abdominal pain or diarrhea. There is no hemoptysis. He is usually followed by the [facility] in [place] with Dr. Jessi Ohara. He is also followed by [facility] cardiology. He states that he began becoming ill from congestive heart failure months ago after being given Bactrim for nasal MRSA. He had an ejection fraction of 18%. After treatment and evaluation, he then had a coronary angiogram March 01. His ejection fraction is now back up to 56%. He has no valvular heart disease. And his coronary arteries are "open" according to he and his 's history. In addition to the CHF, his kidneys "shut down" with the BActrim. He denies pedal edema, but does have orthopnea these last couple of weeks. He states that he was advised by his client solutions manager at the [facility] not to be vaccinated for COVID-19, at least not until he was "better". In the emergency room temperature was 36.6. Heart rate was 86. Respirations were 22. And he is 91% on room air. Blood pressure is 152/133. He is fatigued appearing. Has bilateral lung rhonchi. But no increased respiratory effort or use of accessory muscles. He says he is exhausted and just can barely get up to sit up and walk across the room. Sodium is 133. BUN is 29, creatinine 1.3. Random glucose 154. Total bili 1.4. AST 45. First set of troponin is 62.8. D-dimer is 291. Chest x-ray has bibasilar consolidation. - HOSPITAL COURSE Hospital Course: 1 Covid 19 Pneumonia Patient treated for both possible pneumonia and covid pneumonia given initial CXR impression possible LLL infiltrate and coarse breath sounds, he was managed conservatively w/ 5 days rocephin/azithromycin, 5 days remdesivir and dexamethasone 6 mg x 5 days He required oxygen at night. Considerably fatigued multiple days, but remained afebrile though febrile at home and did not require transfer to higher level of care Clinically he was objectively and subjectively improved over several days and on an ambulatory walk test noted no oxygen requirement on 04/09. Since he iniitlly tested + on 03/24 (2 weeks ago), he was advised to self quarantine x 72 more hours (2) Hypoxia Impression: Remained mild and stable with no increasing oxygen requirement. Ambulatory 02 test on 04/09 over 90% Resume night time bipap at home Due to pneumonia. (3) Elevated troponin in patient with history of CAD not consistent with acute ischemia troponins 62.8 on admit, got ASA and atrovastatin in ED, EKG w/o acute ischemic changes troponins remained flat Continues home regimen Initial ED Rx med reconciliation was incorrect; has been corrected; patient is allergic to metoprolol, not to bisoprolol (takes bisoprolol (4) Type 2 diabetes mellitus without complication, with long-term current use of insulin Fairly well controlled at home A1C 7.9 REquired increase from home dosing due to dexamethasone induced hyperglycemia Advised patient to resume home insulin doses/ may require additional correctional dose 1-2 days and additonal PO hydration but should be self limitedroid/dexamethasone; (5)Bradycardia/ notsymptomatic Patient w/ occasional resting bradycardia asymptomatic in 40's, appropriate increase to 89s w/ activity Did speak with RN at his [facility]iology clinic who confirmed his med regimen, and who notes he has been bradycardic in past at rest ~ 50 EKG/rhythm strip on 04/09 with HR of 50 at the lowest. EKG computer read as "afib, however was consistent with wandering atrial pacemaker and PVC's Ok to continue bisoprolol 2.5 daily , and is to notifiy cardiology if he has significant reduce HR below 50 at rest. (7) Acute kidney insufficiency/pprerenal REsolved Prerenal on admit 44/1.3. 32/1.0 on discharge Advised to hydrate adequately if glucoses remain somewhat elevated a few days after decadron stopped - ALLERGIES Allergies/Adverse Reactions: Allergies Allergy/AdvReac Type Severity Reaction Status Date / Time metoprolol Allergy Rash Verified 04/09/21 12:25 sulfamethoxazole Allergy Unknown Verified 04/05/21 00:33 [From Bactrim] Tetanus Vaccines and Toxoid Allergy Unknown Verified 04/05/21 00:33 trimethoprim [From Bactrim] Allergy Unknown Verified 04/05/21 00:33 - MEDICATIONS Home Medications: Ambulatory Orders Medication Instructions Recorded Confirmed Lisinopril [Zestril] 2.5 mg PO DAILY 04/05/21 04/05/21 Sitagliptin Phosphate [Januvia] 50 mg PO DAILY 04/05/21 04/05/21 Aspirin [Aspirin EC] 81 mg PO DAILY #0 04/09/21 04/05/21 Atorvastatin [Lipitor] 80 mg PO DAILY #0 04/09/21 04/05/21 Insulin Aspart [Novolog] 2 units SQ DAILY #0 04/09/21 04/05/21 Insulin Glargine [Lantus Solostar] 32 unit SQ DAILY #0 04/09/21 04/05/21 Sodium Zirconium Cyclosilicate 5 gm PO DAILY 04/09/21 04/09/21 [Lokelma] Tamsulosin [Flomax] 0.4 mg PO BID 04/09/21 04/09/21 bisoproloL fumarate [Bisoprolol 2.5 mg PO DAILY #30 tablet 04/09/21 Fumarate] - PHYSICAL EXAM AT DISCHARGE General Appearance: positive: No acute distress, Alert, Other (nontoxic, animated in conversation, no tachypnea or cough) Respiratory: positive: No respiratory distress, Breath sounds nml, Other (ambulatory 02 test in room , maintained RA Sa02 over 90%) Cardiovascular: negative: Regular rate & rhythm (irregular rate w/ occas extra systoles and александр cardia at rest, 80's w/ activity WAP on 12 lead w/ HR > 50, PVC's), Systolic murmur Abdomen: positive: Non-tender, Nml bowel sounds, No distention Skin: positive: Warm, Dry Extremities: negative: Pedal edema Neurologic/Psychiatric: positive: Oriented x3, Mood/affect nml - LABS Result Diagrams: 04/09/21 08:13 04/09/21 08:13 Other Lab Results: 12 lead EKG NSR 80 Borderline R axis, flatennned TW throughout - DIAGNOSTIC IMAGING Diagnostic Imaging Results: Final report reviewed Diagnostic Imaging Results Comments: Initial preliminary report CXR 04/05/21; Questionable small opacity in lingula could be developing infection or artifact from overlapping normal structures Final read CXR Left basilar atelectasis vs pneumonia - SEPSIS Current Stage of Sepsis: Ruled out - TIME SPENT Time Spent in Discharge (Minutes): 40 (> 30 minutes evaluating patient, александр cardia, RT eval and educating on d/c plan)
[2021-04-10] MEDS ORDERED: LACTOBACILLUS RHAMNOSUS GG CAPSULE PO SCH (09:00)
== END 2021-04-09 14:50 | disposition home or self-care (01) | DRG 177 ==
LOC: EDUNIT# → SUPCPDRO 23:56 → ED 23:56 → MS2 04-05 01:53
PROVIDERS: ADMIT Specialist; ATTEND Nurse Practitioner
PROC: XW033E5 Introduction of Remdesivir Anti-infective into Peripheral Vein, Percutaneous Approach, New Technology Group 5 (ICD-10-PCS; principal; 2021-04-05)
DX: U07.1 COVID-19 (principal); I21.4 Non-ST elevation (NSTEMI) myocardial infarction; J12.82 Pneumonia due to coronavirus disease 2019; I50.9 Heart failure, unspecified; J18.9 Pneumonia, unspecified organism; I13.0 Hypertensive heart and chronic kidney disease with heart failure and stage 1 through stage 4 chronic kidney disease, or unspecified chronic kidney disease; I24.8 Other forms of acute ischemic heart disease; R09.02 Hypoxemia; I25.10 Atherosclerotic heart disease of native coronary artery without angina pectoris; N18.9 Chronic kidney disease, unspecified; E11.22 Type 2 diabetes mellitus with diabetic chronic kidney disease; Z79.4 Long term (current) use of insulin; T36.8X5D Adverse effect of other systemic antibiotics, subsequent encounter; Z85.46 Personal history of malignant neoplasm of prostate; M06.9 Rheumatoid arthritis, unspecified; Z95.1 Presence of aortocoronary bypass graft; Z87.891 Personal history of nicotine dependence; R00.1 Bradycardia, unspecified; E78.00 Pure hypercholesterolemia, unspecified; E11.65 Type 2 diabetes mellitus with hyperglycemia; E86.0 Dehydration; Z86.14 Personal history of Methicillin resistant Staphylococcus aureus infection; G47.30 Sleep apnea, unspecified
CPT/HCPCS: 36415; 71045; 80048; 80053; 82272; 82803; 83036; 83605; 83690; 83880; 84443; 84484; 85025; 85027; 85379; 85520; 85651; 86141; 87631; 87640; 93005; 94761; 96374; 99284; 99285; A9270; C9399; J1650; J1815; J7120; 0202U

== ENCOUNTER 2021-05-01 09:43 | Outpatient (CLI) | payer MEDICARE, OTHER ==
[2021-05-01 10:26] VITALS: BP 120/64
--- NOTE | 2021-05-01 10:26 | SLEEP CARE CONSULTATION ---
Information from patient questionnaire entered by Alyson Sarabia. I have reviewed and concur with the information entered by Alyson Sarabia. This document represents the service I personally performed and the decisions made by me, Rachel Humphries ARNP. History of Present Illness Service Date and Time: 05/01/2021 0943 Previous diagnosis: Severe, Central Sleep Apnea-Hypopnea Syndrome AHI: 58.5 Reason for follow up: other (2 month with pressure change) Equipment type: BiPAP Equipment obtained from: Other ([facility]; getting supplies as needed) Mask style: Nasal Backup mask available: Yes (old mask) Prior sleep studies: Yes Year and Where: 2020 - [facility] Type of Sleep Study: Polysomnography (at [facility]) HPI additional information: KAREN COPPOLA was diagnosed to have severe, AHI 58.5, central sleep apnea- hypopnea syndrome and returned today with spouse for BIPAP therapy 2 month with pressure change follow-up. Sleep Study - Results Type of Sleep Study: Polysomnography (at [facility]) Prior sleep studies: Yes Year and Where: 2020 - [facility] CPAP Compliance Data - Data Reviewed with Patient Average duration of nightly device use: 3 hours 14 minutes Compliance rate %: 28.3 Current pressure setting (cmH2O): 14/10 Average residual AHI: 11.3 Central apnea: 0.4 Obstructive apnea: 0.1 Hypopnea: 10.8 Subjective Missed days of use due to: reports: illness (Covid, hospitalized) Patient concerns: reports: nasal congestion, dry mouth, nose, throat, epistaxis. denies: aerophagia, mask discomfort, air blowing in eyes, mask leak noise, condensation in mask/hose, other Observed to snore while using device: No Current pressure setting perceived as: too low On therapy, patient: reports: sleeping better, awakening more refreshed, being more awake and alert during the day, more rested overall. denies: drowsiness while driving Initial [place] Sleepiness Scale score: 13 (in 2020) Current [place] Sleepiness Scale score: 10 Allergies and Home Medications Home medication list reviewed: Yes (bisoprolol started, stopped metroprolol; metformin 500 mg daily) Review of Systems Review of systems same as previous: No (Angiogram March 02; Covid Mar 24, 4 days in hospital for hypoxia) Physical Exam Blood Pressure: 120/64 Cuff size: wrist Heart Rate: 68 O2 Saturation: 93 Height: 5 ft 10 in Weight: 185 lb 9.6 oz Body Mass Index: 26.6 BMI Classification: Overweight Impression and Plan 1. Central Sleep Apnea-Hypopnea Syndrome, severe, with poor treatment compliance and fair apnea control with elevated residual AHI. On BIPAP therapy, the patient has better sleep quality and is more rested overall. Patient has been having difficulty with unable to tolerate his CPAP mask after a period of not being able to use it. He had covid infection and was in the hospital for about 4 days with hypoxia. He also feel that the pressure is too low and this may be contributing to him not being able to tolerate the mask on. The patients pressure will be changed to BIPAP 17/10 cmH20 for elevation of residual AHI and patient comfort. Patient advised to contact me if pressure change is uncomfortable so that it can be adjusted. Goals for apnea control discussed. Patient's apnea severity and rationale for treatment to reduce apnea, improve sleep quality and reduce cardiovascular and cerebrovascular events was reviewed. I also reviewed the benefit of consistent device use of CPAP for hypertension, cardiac disease (CHF), and arrhythmia. * Change auto CPAP pressure to 17/10 cmH2O * Notify me if snoring with mask or feeling that the pressure is too much or too little * Attempt to lose weight * Call this office if any problems using CPAP * Return for follow up in 1-2 months, or sooner if concerns arise Counseling Topics: Spare mask, Weight loss health impact Visit Type: In Office Time Spent with Patient (minutes): 28 Provider Statement: I spent 100% of the Face to Face Visit with the patient with greater than 50% spent counseling the patient and coordination of care.
== END 2021-05-01 09:44 | disposition home or self-care (01) ==
LOC: SC 09:43
PROVIDERS: ATTEND Nurse Practitioner Family
DX: G47.31 Primary central sleep apnea (principal)
CPT/HCPCS: 99213; G0463; 99212

== ENCOUNTER 2021-05-08 08:22 | Outpatient (CLI) | payer MEDICARE, OTHER | END 2021-05-08 08:23 | disposition EMS.NT | LOC: EMS 08:22 | DX: T88.7XXA Unspecified adverse effect of drug or medicament, initial encounter (principal) ==

== ENCOUNTER 2021-06-25 10:42 | Outpatient (CLI) | payer MEDICARE, OTHER ==
[2021-06-25 11:16] VITALS: BP 148/78
--- NOTE | 2021-06-25 11:16 | SLEEP CARE CONSULTATION ---
Information from patient questionnaire entered by Roque Alonzo MA. I have reviewed and concur with the information entered by Roque Alonzo MA. This document represents the service I personally performed and the decisions made by , Rachel Humphries ARNP. History of Present Illness Service Date and Time: 06/25/2021 1042 Previous diagnosis: Severe, Central Sleep Apnea-Hypopnea Syndrome AHI: 58.5 Reason for follow up: other (2 month with pressure change) Equipment type: BiPAP Equipment obtained from: Other ([facility]; getting supplies as needed) Mask style: Nasal Backup mask available: Yes (old mask ) Last cushion change: 2 days ago Prior sleep studies: Yes Year and Where: 2020 - [facility] Type of Sleep Study: Polysomnography (at [facility]) HPI additional information: KAREN COPPOLA was diagnosed to have severe, AHI 58.5, central sleep apnea- hypopnea syndrome and returned today for BIPAP therapy 2 month with pressure change follow-up. Sleep Study - Results Type of Sleep Study: Polysomnography (at [facility]) Prior sleep studies: Yes Year and Where: 2020 - [facility] CPAP Compliance Data - Data Reviewed with Patient Average duration of nightly device use: 2 days 24 minutes Compliance rate %: 16.7 (60 days) Current pressure setting (cmH2O): 14/10 Humidity settin Heated hose settin Average residual AHI: 19.5 Central apnea: 2.3 Obstructive apnea: 0.1 Hypopnea: 17.1 Subjective Missed days of use due to: reports: illness Patient concerns: reports: dry mouth, nose, throat. denies: aerophagia, mask discomfort, air blowing in eyes, mask leak noise, condensation in mask/hose, nasal congestion, epistaxis, other Observed to snore while using device: No Current pressure setting perceived as: comfortable On therapy, patient: reports: sleeping better, awakening more refreshed, being more awake and alert during the day, more rested overall. denies: drowsiness while driving Initial [place] Sleepiness Scale score: 13 (in 2020) Current [place] Sleepiness Scale score: 9 (in 2020) Allergies and Home Medications Known drug allergies: No Home medication list reviewed: Yes Allergy and home medication list: stopped Januvia, started Jardiance this month Review of Systems Review of systems same as previous: Yes (no changes) Physical Exam Vital signs obtained and entered by: NAVA GAFFNEY Blood Pressure: 148/78 (right) Cuff size: wrist Heart Rate: 70 O2 Saturation: 97 (with mask) Height: 5 ft 10 in Weight: 194 lb (weighed at cardio appt) Body Mass Index: 27.8 BMI Classification: Overweight Impression and Plan 1. Central Sleep Apnea-Hypopnea Syndrome, severe, with poor treatment compliance and fair apnea control with elevated residual AHI. On BIPAP therapy, the patient has better sleep quality and is more rested overall. Patient states his doctor changed him from Januvia to Jardiance for his diabetes. Since that time he has been sleeping much better and has tolerated the mask on for over 6 hours in the last week. He is okay to try an increase of his pressure settings to try and reduce his hypopneas. His current residual AHI is at 19.5. I will change his BiPAP settings to 15/10 centimeters H2O and have him follow up in 3 months. He voice understanding. Patient's apnea severity and rationale for treatment to reduce apnea, improve sleep quality and reduce cardiovascular and cerebrovascular events was reviewed. I also reviewed the benefit of consistent device use of BIPAP for hypertension, cardiac disease (CHF) and arrhythmia. Patient was encouraged to lose weight for their overall health and to reduce apneas. * Change BIPAP pressure to 15/10 cmH2O * Notify me if snoring with mask or feeling that the pressure is too much or too little * Attempt to lose weight * Call this office if any problems using BIPAP * Return for follow up in 3 months, or sooner if concerns arise Counseling Topics: Spare mask, Weight loss health impact Visit Type: In Office Time Spent with Patient (minutes): 22 Provider Statement: I spent 100% of the Face to Face Visit with the patient with greater than 50% spent counseling the patient and coordination of care.
== END 2021-06-25 10:43 | disposition home or self-care (01) ==
LOC: SC 10:42
PROVIDERS: ATTEND Nurse Practitioner Family
DX: G47.31 Primary central sleep apnea (principal)
CPT/HCPCS: 99213; G0463; 99212

== ENCOUNTER 2021-08-28 10:34 | Outpatient (CLI) | payer MEDICARE, OTHER ==
--- NOTE | 2021-08-28 11:25 | SLEEP CARE CONSULTATION ---
Information from patient questionnaire entered by Roque Alonzo MA. I have reviewed and concur with the information entered by Roque Alonzo MA. This document represents the service I personally performed and the decisions made by , Rachel Humphries ARNP. History of Present Illness Service Date and Time: 08/28/2021 1034 Previous diagnosis: Severe, Central Sleep Apnea-Hypopnea Syndrome AHI: 58.5 Reason for follow up: other (2 MONTH F/U) Equipment type: BiPAP Equipment obtained from: Other ([facility]; getting supplies as needed) Mask style: Nasal Backup mask available: Yes (old mask) Last cushion change: yesterday Prior sleep studies: Yes Year and Where: 2020 - [facility] Type of Sleep Study: Polysomnography (at [facility]) HPI additional information: KAREN COPPOLA was diagnosed to have severe, AHI 58.5, central sleep apnea- hypopnea syndrome and returned today for BIPAP therapy 2 months follow-up. Sleep Study - Results Type of Sleep Study: Polysomnography (at [facility]) Prior sleep studies: Yes Year and Where: 2020 - [facility] CPAP Compliance Data - Data Reviewed with Patient Average duration of nightly device use: 2 hours 58 minutes Compliance rate %: 24.3 Current pressure setting (cmH2O): 15/10 Humidity settin Heated hose setting: ADAPTIVE Average residual AHI: 16.0 Subjective Missed days of use due to: reports: illness (COVID TWICE), other (FIGHTING THE MACHINE MORE THAN BEING COMFORTABLE) Patient concerns: reports: mask leak noise, nasal congestion (from being sick), dry mouth, nose, throat (dry nose), other (BLOODY NOSE). denies: aerophagia, mask discomfort, air blowing in eyes, condensation in mask/hose, epistaxis Observed to snore while using device: No Current pressure setting perceived as: too low On therapy, patient: reports: sleeping better, more rested overall. denies: drowsiness while driving Initial [place] Sleepiness Scale score: 13 (in 2020) Current [place] Sleepiness Scale score: 6 (2021) Allergies and Home Medications Known drug allergies: No Drug allergies reviewed: Yes Home medication list reviewed: Yes (Januvia replaced by Jardiance) Review of Systems Review of systems same as previous: No (Covid again in Jul/Aug) Physical Exam Vital signs obtained and entered by: Tc ALONZO CMA AAMA Blood Pressure: 130/71 (RIGHT, PULSE 45) Cuff size: wrist Heart Rate: 47 O2 Saturation: 98 (WITH N95 MASK) Height: 5 ft 10 in Weight: 187 lb (W/0 CLOTHES) Body Mass Index: 26.8 BMI Classification: Overweight Impression and Plan 1. Central Sleep Apnea-Hypopnea Syndrome, severe, with poor treatment compliance and fair apnea control with elevated residual AHI. On BIPAP therapy, the patient has better sleep quality and is more rested overall. He feels the pressure it too low and his residual AHI is elevated. We have been working on increasing his pressure because he could not tolerate the pressure too high at first. The patients pressure will be changed to autoCPAP 16/10 cmH20 for elevation of residual AHI and we will continue to go up slowly to reduce his AHI. Patient advised to contact me if pressure change is uncomfortable so that it can be adjusted. Goals for apnea control discussed. He has been having some nasal dryness and bloody noses. Nasal dryness can be reduced with increasing the CPAP humidity and the heated hose can be increased if condensation. In addition, I gave the patient a few samples of Sommer Ease nasal cream to be used 4 times a day for 7-10 days and then as needed to reduce nasal dryness. He voiced understanding. Patient also states that his machine sometimes seems to not deliver a full breath in for the inhale, about every 4th breath. He states he notices this until he falls asleep. I am not sure if this is inherent from the BIPAP or if his device needs to be serviced. I will look into this and get back to him. I will follow up with him in 1-2 months to recheck his compliance and apnea control. Patient's apnea severity and rationale for treatment to reduce apnea, improve sleep quality and reduce cardiovascular and cerebrovascular events was reviewed. I also reviewed the benefit of consistent device use of BIPAP for hypertension, cardiac disease (CHF) and arrhythmia. Patient was encouraged to lose weight for their overall health and to reduce apneas. * Change auto CPAP pressure to 16/10 cmH2O * Notify me if snoring with mask or feeling that the pressure is too much or too little * Attempt to lose weight * Call this office if any problems using BIPAP * Return for follow up in 1-2 months, or sooner if concerns arise Counseling Topics: Spare mask, Weight loss health impact Visit Type: In Office Time Spent with Patient (minutes): 23 Provider Statement: I spent 100% of the Face to Face Visit with the patient with greater than 50% spent counseling the patient and coordination of care.
[2021-08-28 11:26] VITALS: BP 130/71
== END 2021-08-28 10:35 | disposition home or self-care (01) ==
LOC: SC 10:34
PROVIDERS: ATTEND Nurse Practitioner Family
DX: G47.31 Primary central sleep apnea (principal); E66.3 Overweight; Z68.26 Body mass index [BMI] 26.0-26.9, adult
CPT/HCPCS: 99213; G0463; 99212

== ENCOUNTER 2021-10-16 10:29 | Outpatient (CLI) | payer MEDICARE, OTHER ==
[2021-10-16 11:27] VITALS: BP 111/65
--- NOTE | 2021-10-16 11:27 | SLEEP CARE CONSULTATION ---
Information from patient questionnaire entered by Roque Alonzo MA. I have reviewed and concur with the information entered by Roque Alonzo MA. This document represents the service I personally performed and the decisions made by , Rachle Humphries ARNP. History of Present Illness Service Date and Time: 10/16/2021 1029 Previous diagnosis: Severe, Central Sleep Apnea-Hypopnea Syndrome AHI: 58.5 Reason for follow up: other (7 WEEK F/U, PRESSURE CHANGE,) Equipment type: BiPAP Equipment obtained from: Other ([facility]; getting supplies as needed) Mask style: Nasal Backup mask available: Yes (old mask) Last cushion change: last night Prior sleep studies: Yes Year and Where: 2020 - [facility] Type of Sleep Study: Polysomnography (at [facility]) HPI additional information: KAREN COPPOLA was diagnosed to have severe, AHI 58.5, central sleep apnea- hypopnea syndrome and returned today with spouse for BIPAP therapy 7 week with pressure change follow-up. Sleep Study - Results Type of Sleep Study: Polysomnography (at [facility]) Prior sleep studies: Yes Year and Where: 2020 - [facility] CPAP Compliance Data - Data Reviewed with Patient Average duration of nightly device use: 1 HOUR 37 MINUTES Compliance rate %: 2.5 Current pressure setting (cmH2O): 16/10 Humidity settin Heated hose settin Average residual AHI: 6.3 Average large leak: 0.8 Subjective Missed days of use due to: reports: travel Patient concerns: reports: nasal congestion, dry mouth, nose, throat. denies: aerophagia, mask discomfort, air blowing in eyes, mask leak noise, condensation in mask/hose, epistaxis Observed to snore while using device: No Current pressure setting perceived as: comfortable On therapy, patient: reports: awakening more refreshed, more rested overall. denies: drowsiness while driving Initial [place] Sleepiness Scale score: 13 (in 2020) Current [place] Sleepiness Scale score: 7 (10/2021) Allergies and Home Medications Home medication list reviewed: Yes (Jardiance replaced Januvia; started Trulicity once a week) Allergy and home medication list: Allergies metoprolol Allergy (Verified 04/09/21 12:25) Rash sulfamethoxazole [From Bactrim] Allergy (Verified 04/05/21 00:33) Unknown Tetanus Vaccines and Toxoid Allergy (Verified 04/05/21 00:33) Unknown trimethoprim [From Bactrim] Allergy (Verified 04/05/21 00:33) Unknown Review of Systems Review of systems same as previous: Yes (no changes) Physical Exam Vital signs obtained and entered by: Tc ALONZO CMA AAMA Blood Pressure: 111/65 (RIGHT, PULSE 60, RESP 14,) Cuff size: wrist Heart Rate: 72 O2 Saturation: 96 (N96) Height: 5 ft 10 in Weight: 186 lb 12.8 oz (W/O CLOTHES) Weight change since last visit: 1 lb loss Body Mass Index: 26.8 BMI Classification: Overweight Impression and Plan 1. Central Sleep Apnea-Hypopnea Syndrome, severe, with poor treatment compliance and fair apnea control with mild elevation of his residual AHI. I will not make any changes today due to lower compliance as I want him to be able to wear mask comfortably and he does have significant reduction of his sleep apnea at current pressure settings. On BIPAP therapy, the patient has better sleep quality and is more rested overall. Patient spent a month on vacation in [place] and states it was so humid he could not use the mask. He states since he has come back he has had some mouth and nose dryness. He has also had some nasal congestion. He likes the nasal cushion mask. Oral and nasal dryness can be reduced with increasing the CPAP humidity and the heated hose can be increased if develops condensation. In addition, I gave the patient a few samples of Sommer Ease nasal cream to be used 4 times a day for 7-10 days and then as needed. He voiced understanding. Patient states he does take a 2 hour nap during the day most days. I advised him to wear his CPAP mask for his naps too. He agreed to commit to doing this as well as wearing the CPAP at night. I discussed with him that if we can reduce irritation from dryness and nasal congestion he will be able to tolerate his mask for longer periods of time. Patient's apnea severity and rationale for treatment to reduce apnea, improve sleep quality and reduce cardiovascular and cerebrovascular events was reviewed. I also reviewed the benefit of consistent device use of BIPAP for hypertension, cardiac disease (CHF) and arrhythmia. I will have him follow up in 3 months to recheck his compliance and see how he is doing. 2. Overweight, unspecified. Patient has lost weight. Currently patients BMI is 26.8. Obesity increases the risk of apnea, CPAP pressure requirements and overall health risks especially cardiovascular and diabetes. Thus patient is advised to continue to try to lose weight. Weight loss can be done with reducing portion size, reducing refined foods and balancing content with vegetables, fruit and whole grain foods. In addition, patient encouraged to get regular exercise. * Continue BIPAP pressure at 16/10 cmH2O * Notify me if snoring with mask or feeling that the pressure is too much or too little * Continue to try to lose weight * Call this office if any problems using CPAP * Return for follow up in 3 months, or sooner if concerns arise Counseling Topics: Spare mask, Weight loss health impact Visit Type: In Office Time Spent with Patient (minutes): 22 Provider Statement: I spent 100% of the Face to Face Visit with the patient with greater than 50% spent counseling the patient and coordination of care.
== END 2021-10-16 10:30 | disposition home or self-care (01) ==
LOC: SC 10:29
PROVIDERS: ATTEND Nurse Practitioner Family
DX: G47.31 Primary central sleep apnea (principal); E66.3 Overweight; Z68.26 Body mass index [BMI] 26.0-26.9, adult
CPT/HCPCS: 99213; G0463; 99212

== ENCOUNTER 2022-01-16 10:56 | Outpatient (CLI) | payer MEDICARE, OTHER ==
[2022-01-16 11:40] VITALS: BP 124/66
--- NOTE | 2022-01-16 11:40 | SLEEP CARE CONSULTATION ---
Information from patient questionnaire entered by Roque Mukherjee MA. I have reviewed and concur with the information entered by Roque Mukherjee MA. This document represents the service I personally performed and the decisions made by , Rachel Humphries ARNP. History of Present Illness Service Date and Time: 01/16/2022 1056 Previous diagnosis: Severe, Central Sleep Apnea-Hypopnea Syndrome AHI: 58.5 Reason for follow up: three month (POLINA, DAVID 11/10/2020, ) Equipment type: BiPAP Equipment obtained from: Other ([facility]; getting supplies as needed) Mask style: Nasal Backup mask available: Yes (old mask) Last cushion change: last night Prior sleep studies: Yes Year and Where: 2020 - [facility] Type of Sleep Study: Polysomnography (at [facility]) HPI additional information: KAREN COPPOLA was diagnosed to have severe, AHI 58.5, central sleep apnea- hypopnea syndrome and returned today for BIPAP therapy three month follow-up. Sleep Study - Results Type of Sleep Study: Polysomnography (at [facility]) Prior sleep studies: Yes Year and Where: 2020 - [facility] CPAP Compliance Data - Data Reviewed with Patient Average duration of nightly device use: 1 hour 41 minutes Compliance rate %: 2.8 (180 days; 23.3% usage overall) Current pressure setting (cmH2O): 16/10 Humidity settin Heated hose settin Average residual AHI: 12.5 Central apnea: 0.8 Obstructive apnea: 0.1 Hypopnea: 11.6 Average large leak: 0.3% Compliance data discussion: [facility] replaced the recalled part of his machine last month. Subjective Missed days of use due to: reports: travel Patient concerns: reports: mask discomfort, dry mouth, nose, throat (chin strap not working as well, will oral vent). denies: aerophagia, air blowing in eyes, mask leak noise, condensation in mask/hose, nasal congestion, epistaxis, other Observed to snore while using device: No Current pressure setting perceived as: comfortable On therapy, patient: reports: sleeping better, more rested overall. denies: drowsiness while driving Initial [place] Sleepiness Scale score: 13 (in 2020) Current [place] Sleepiness Scale score: 8 (01/16/2022) Allergies and Home Medications Known drug allergies: Yes (TETANUS VACCINE) Home medication list reviewed: Yes (no changes) Allergy and home medication list: Allergies metoprolol Allergy (Verified 04/09/21 12:25) Rash sulfamethoxazole [From Bactrim] Allergy (Verified 04/05/21 00:33) Unknown Tetanus Vaccines and Toxoid Allergy (Verified 04/05/21 00:33) Unknown trimethoprim [From Bactrim] Allergy (Verified 04/05/21 00:33) Unknown Review of Systems Review of systems same as previous: Yes (no changes) Physical Exam Vital signs obtained and entered by: Tc MUKHERJEE CMA [facility] Blood Pressure: 124/66 (PULSE 53, RESP 18, LEFT, ) Heart Rate: 41 O2 Saturation: 96 (PAPER MASK) Height: 5 ft 10 in Weight: 189 lb 6.4 oz (CLOTHES) Body Mass Index: 27.1 BMI Classification: Overweight Impression and Plan 1. Central Sleep Apnea-Hypopnea Syndrome, severe, with poor treatment compliance and fair apnea control. On BIPAP therapy, the patient has better sleep quality and is more rested overall. He still has problems with being able to go all night with the mask on. He states he will lay in bed with mask on for 50 minutes or more and not be able to go to sleep. He will then take the mask off and go right to sleep. I advised trying an OTC sleep aid or 4mg melatonin to help him go to sleep initially with the mask on to try and break out of cycle of sleep onset insomnia. He voiced understanding and will try this suggestion. He still has an elevated AHI with central index 0.8, obstructive index 0.1 and hypopnea index 11.6. His average large leak is at 0.3%. He is using a chinstrap but it is wearing out and he will oral vent most nights. I will not make any changes to his pressure settings today. I want to get him using it more regularly before any further pressure changes are made. Patient's apnea severity and rationale for treatment to reduce apnea, improve sleep quality and reduce cardiovascular and cerebrovascular events was reviewed. I also reviewed the benefit of consistent device use of BIPAP for hypertension, cardiac disease (CHF) and arrhythmia. * Continue BIPAP pressure at 16/10 cmH2O * Notify me if snoring with mask or feeling that the pressure is too much or too little * Attempt to lose weight * Call this office if any problems using BIPAP * Return for follow up in 3 months, or sooner if concerns arise Counseling Topics: Spare mask, Weight loss health impact Visit Type: In Office Time Spent with Patient (minutes): 23 Provider Statement: I spent 100% of the Face to Face Visit with the patient with greater than 50% spent counseling the patient and coordination of care.
== END 2022-01-16 10:57 | disposition home or self-care (01) ==
LOC: SC 10:56
PROVIDERS: ATTEND Nurse Practitioner Family
DX: G47.31 Primary central sleep apnea (principal); E66.3 Overweight; Z68.27 Body mass index [BMI] 27.0-27.9, adult
CPT/HCPCS: 99213; G0463; 99212

== ENCOUNTER 2022-05-08 10:49 | Outpatient (CLI) | payer MEDICARE, OTHER ==
[2022-05-08 11:32] VITALS: BP 110/58
--- NOTE | 2022-05-08 11:32 | SLEEP CARE CONSULTATION ---
Information from patient questionnaire entered by Camila Lara MA. I have reviewed and concur with the information entered by Camila Lara MA. This document represents the service I personally performed and the decisions made by me, Rachel Humphries ARNP. History of Present Illness Service Date and Time: 05/08/2022 1049 Previous diagnosis: Severe, Central Sleep Apnea-Hypopnea Syndrome AHI: 58.5 (in 2020) Reason for follow up: three month Equipment type: BiPAP ([employer], setup 11/20/2020) Equipment obtained from: Other ([facility]; getting supplies as needed) Mask style: Nasal (with chinstrap and mouth strips) Backup mask available: Yes (old mask) Last cushion change: weekly Prior sleep studies: Yes Year and Where: 2020 - [facility] Type of Sleep Study: Polysomnography (at [facility]) HPI additional information: KAREN COPPOLA was diagnosed to have severe, AHI 58.5, central sleep apnea- hypopnea syndrome and returned today for BIPAP therapy three month follow-up. Sleep Study - Results Type of Sleep Study: Polysomnography (at [facility]) Prior sleep studies: Yes Year and Where: 2020 - [facility] CPAP Compliance Data - Data Reviewed with Patient Average duration of nightly device use: 42 minutes Compliance rate %: 0 ( days used) Current pressure setting (cmH2O): 16/10 Average residual AHI: 8.1 Central apnea: 0.4 Obstructive apnea: 0.1 Hypopnea: 7.6 Average large leak: 0.5 L/min Compliance data discussion: He states he puts the mask on with a chinstrap and mouth strips to keep mouth closed, using the ramp feature. He takes Melatonin 10 mg prior to going to bed. He states because he takes Flomax and he is always up about 2 hours later to use the bathroom. He then either cannot go to sleep at all or does not put all the stuff back on and goes to sleep. He states it is too much to put mask on with the chinstrap and mouth strips during the night. Subjective Missed days of use due to: reports: travel ([place] for 1 month, took but did not use), other (does not put on mask after getting up to bathroom) Patient concerns: denies: aerophagia, mask discomfort, air blowing in eyes, mask leak noise, condensation in mask/hose, nasal congestion, dry mouth, nose, throat, epistaxis Observed to snore while using device: No Current pressure setting perceived as: comfortable On therapy, patient: reports: other (He feels like he sleeps better without his CPAP) Initial [place] Sleepiness Scale score: 13 (in 2020) Current [place] Sleepiness Scale score: 5 Allergies and Home Medications Drug allergies reviewed: Yes (as listed in chart) Home medication list reviewed: Yes (no changes) Allergy and home medication list: Allergies metoprolol Allergy (Verified 04/09/21 12:25) Rash sulfamethoxazole [From Bactrim] Allergy (Verified 04/05/21 00:33) Unknown Tetanus Vaccines and Toxoid Allergy (Verified 04/05/21 00:33) Unknown trimethoprim [From Bactrim] Allergy (Verified 04/05/21 00:33) Unknown Review of Systems Review of systems same as previous: No (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 Central Sleep Apnea-Hypopnea Syndrome, severe, with poor treatment compliance and fair apnea control with mild elevation of residual AHI. Patient's AHI is actually lower than I have seen in the past at 8.1. Patient's main problem is being able to put the mask back on after taking it off to go to the bathroom. He states is just too much of a hassle to put it all back on and go back to sleep. He will either not be able to sleep because he gets too awake and or just go to sleep without the mask on. Patient would like to use his machine consistently to support his cardiovascular health because he does have congestive heart failure. I advised him to try to unhook the tubing rather than take the mask, chinstrap and mouth strips off to go to the restroom. This gives him only a simple insertion of the tubing and turning the pressure back on at the low ramp started pressure when he gets back to bed. This reduces what he has to do to be able to get back to this sleep. He voiced understanding and says he will give this a try. I will have him return in 3 months to see how he is doing. Patient's apnea severity and rationale for treatment to reduce apnea, improve sleep quality and reduce cardiovascular and cerebrovascular events was reviewed. I also reviewed the benefit of consistent device use of BIPAP for hypertension, cardiac disease (CHF) and arrhythmia. 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 * Continue BIPAP pressure at 16/10 cmH2O * Try to disconnect hose and leave mask on to go to bathroom; then re-connect hose, turn BIPAP on, go back to sleep * Notify me if snoring with mask or feeling that the pressure is too much or too little * Call this office if any problems using BIPAP * Return for follow up in 3 months, or sooner if concerns arise Counseling Topics: Spare mask, Weight loss health impact Visit Type: In Office Time Spent with Patient (minutes): 25 Provider Statement: I spent 100% of the Face to Face Visit with the patient with greater than 50% spent counseling the patient and coordination of care.
== END 2022-05-08 10:50 | disposition home or self-care (01) ==
LOC: SC 10:49
PROVIDERS: ATTEND Nurse Practitioner Family
DX: G47.31 Primary central sleep apnea (principal); E66.3 Overweight; Z68.26 Body mass index [BMI] 26.0-26.9, adult
CPT/HCPCS: 99213; G0463; 99212

== ENCOUNTER 2022-08-27 14:02 | Outpatient (CLI) | payer MEDICARE, OTHER ==
[2022-08-27 14:43] VITALS: BP 128/62
--- NOTE | 2022-08-27 14:43 | SLEEP CARE CONSULTATION ---
Information from patient questionnaire entered by Tammy Capellan. I have reviewed and concur with the information entered by Tammy Capellan. This document represents the service I personally performed and the decisions made by me, Rachel Humphries ARNP. History of Present Illness Service Date and Time: 08/27/2022 1402 Previous diagnosis: Severe, Central Sleep Apnea-Hypopnea Syndrome AHI: 58.5 Reason for follow up: three month (F/U ) Equipment type: BiPAP (ALVAREZ Dreamstation S/T) Equipment obtained from: Other ([facility]; getting supplies as needed) Mask style: Nasal Backup mask available: Yes (old mask) Last cushion change: 2 days, rotates through 5 cushions Prior sleep studies: Yes Year and Where: 2020 - [facility] Type of Sleep Study: Polysomnography (at [facility]) HPI additional information: KAREN COPPOLA was diagnosed to have severe, AHI 58.2, central sleep apnea- hypopnea syndrome and returned today for BIPAP therapy three month follow-up. Sleep Study - Results Type of Sleep Study: Polysomnography (at [facility]) Prior sleep studies: Yes Year and Where: 2020 - [facility] CPAP Compliance Data - Data Reviewed with Patient Average duration of nightly device use: 2 hours 30 minutes Compliance rate %: 3.3 ( days used) Current pressure setting (cmH2O): 16/10 Average residual AHI: 8.6 Central apnea: 0.3 Obstructive apnea: 0.1 Hypopnea: 8.2 Average large leak: 17 secs Subjective Missed days of use due to: reports: illness (respiratory illness) Patient concerns: reports: nasal congestion, dry mouth, nose, throat, epistaxis. denies: aerophagia, mask discomfort, air blowing in eyes, mask leak noise, condensation in mask/hose Observed to snore while using device: Yes Current pressure setting perceived as: comfortable On therapy, patient: reports: sleeping better, more rested overall. denies: drowsiness while driving Initial [place] Sleepiness Scale score: 13 (in 2020) Current [place] Sleepiness Scale score: 7 (08/27/22) Allergies and Home Medications Drug allergies reviewed: Yes (as listed in EMR) Home medication list reviewed: Yes (no changes) Review of Systems Review of systems same as previous: Yes (no changes) Physical Exam Vital signs obtained and entered by: TAMMY Cancino MA Blood Pressure: 128/62 (LEFT ARM) Cuff size: regular Heart Rate: 61 O2 Saturation: 97 Height: 5 ft 10 in Weight: 187 lb (PER PT) Body Mass Index: 26.8 BMI Classification: Overweight Impression and Plan 1. Central Sleep Apnea-Hypopnea Syndrome, severe, with poor treatment compliance and fair apnea control with elevated residual AHI. On BiPAP therapy, the patient has better sleep quality and is more rested overall. Patient is committed to try to use his BiPAP but he just struggles with it. He is unable to tolerate it for more than 2 hours most nights. He has noted that he did feel very rested after making it for 4 + hours 2 nights in a row. He asks about alternative treatments for his central sleep apnea. I will discuss his case with Dr. Pineda and investigate alternatives for him. I will have him continue BiPAP therapy and follow up in about 3 months. He agreed with plan. Patient's apnea severity and rationale for treatment to reduce apnea, improve sleep quality and reduce cardiovascular and cerebrovascular events was reviewed. I also reviewed the benefit of consistent device use of BiPAP for hypertension, cardiac disease (CHF) and arrhythmia. 2. Overweight, unspecified. Currently patients BMI is 26.8. Obesity increases the risk of apnea, BiPAP pressure requirements and overall health risks especially cardiovascular and diabetes. Thus patient is advised to lose weight. * Continue BiPAP pressure at 16/10 cmH2O * Notify me if snoring with mask or feeling that the pressure is too much or too little * Attempt to lose weight * Call this office if any problems using BiPAP * Return for follow up in 3 months, or sooner if concerns arise Counseling Topics: Spare mask, Weight loss health impact Visit Type: In Office Time Spent with Patient (minutes): 22 Provider Statement: I spent 100% of the Face to Face Visit with the patient with greater than 50% spent counseling the patient and coordination of care.
== END 2022-08-27 14:03 | disposition home or self-care (01) ==
LOC: SC 14:02
PROVIDERS: ATTEND Nurse Practitioner Family
DX: G47.31 Primary central sleep apnea (principal); I11.0 Hypertensive heart disease with heart failure; I50.9 Heart failure, unspecified; I49.9 Cardiac arrhythmia, unspecified; E66.3 Overweight; Z68.26 Body mass index [BMI] 26.0-26.9, adult
CPT/HCPCS: 99213; G0463; 99212

== ENCOUNTER 2022-09-16 19:34 | Outpatient (CLI) | payer MEDICARE, OTHER | END 2022-09-16 19:35 | disposition home or self-care (01) | LOC: SC 19:34 | PROVIDERS: ATTEND Nurse Practitioner Family | DX: G47.31 Primary central sleep apnea (principal); G47.61 Periodic limb movement disorder; I49.3 Ventricular premature depolarization; I11.0 Hypertensive heart disease with heart failure; I50.9 Heart failure, unspecified | CPT/HCPCS: 95810 ==

== ENCOUNTER 2022-09-24 10:48 | Outpatient (CLI) | payer MEDICARE, OTHER ==
[2022-09-24 11:26] VITALS: BP 80/44
--- NOTE | 2022-09-24 11:26 | SLEEP CARE CONSULTATION ---
Information from patient questionnaire entered by Kristen Capellan. I have reviewed and concur with the information entered by Kristen Capellan. This document represents the service I personally performed and the decisions made by , Rachel Humphries ARNP. History of Present Illness Service Date and Time: 09/24/2022 1048 Accompanied by: Spouse Initial [place] Sleepiness Scale score: 13 (in 2020) Current [place] Sleepiness Scale score: 6 (09/24/22) Additional HPI information: KAREN COPPOLA returns for follow up with spouse and results of the recently performed polysomnography. Patient sleep study showed an improvement of his central sleep apnea from severe with an AHI of 58.5 to moderate central sleep apnea with AHI of 18.6. He has been on BiPAP therapy set at 16/10 cmH20. Patient was cautioned about risks of drowsy driving until sleepiness symptoms resolve. Patient denies drowsy driving. Sleep Study - Results Type of Sleep Study: Polysomnography (COMPLETED 09/16/22) Prior sleep studies: Yes Year and Where: 2020 - [facility] Polysomnography/Home Sleep Study results: IMPRESSION: The quality of the study is good. The patient had reduced sleep efficiency due to frequent awakenings throughout the night. The sleep architecture was abnormal for sleep fragmentation and reduced amount of time spent in REM and slow wave sleep (N3). Respiratory monitoring showed moderate central sleep apnea hypopnea (AHI = 18.6) associated with frequent arousals, oxyhemoglobin desaturation and mild hypoxia (rena oxygen saturation of 88%). The respiratory events occurred almost exclusively during supine sleep (supine AHI = 50.2; non-supine = 2.11). Snore was infrequent and light in intensity. There was moderate periodic leg movement of sleep contributing to the sleep fragmentation. Cardiac rhythm was sinus rhythm with frequent premature ventricular contractions, occasionally in bigeminy and couplets. No abnormal behavior (parasomnia) observed during the night. Allergies and Home Medications Drug allergies reviewed: Yes (as listed in EMR) Home medication list reviewed: Yes (no changes) Review of Systems Review of systems same as previous: Yes (no changes) Physical Exam Vital signs obtained and entered by: KRISTEN Cancino MA Blood Pressure: 80/44 (left arm) Cuff size: regular Heart Rate: 78 O2 Saturation: 97 Height: 5 ft 10 in Weight: 188 lb 12.8 oz Body Mass Index: 27.1 BMI Classification: Overweight Impression and Plan 1. Central Sleep Apnea-Hypopnea Syndrome, moderate, with lowest oxygen saturation of 88%. Patient has been on BiPAP therapy with suboptimal apnea control and reduced compliance. Patient's current sleep study showed a supine AHI of 50.2 and a non-supine AHI of 2.11. Patient may continue on BiPAP therapy with pressure set at 16/10 cmH2O. He was advised to do positional therapy and sleep non-supine on nights that he is unable to tolerate the BiPAP. I will follow up with him in a year or sooner if he has further concerns. 2. Premature ventricular contractions, frequent. Frequent PVCs were noted during his sleep study. He has a cardiac history of congestive heart failure, hypertension and arrhythmia. 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 3. Periodic limb movement, moderate, that did fragment patients sleep. Periodic limb movement of sleep (PLMS) is characterized by episodes of repetitive limb movements that occur during sleep and usually involve the lower limbs. The etiology is unknown. Caffeine can aggravate PLMS and should be avoided. Sleep hygiene methods can also improve sleep as well as lifestyle changes such as regular exercise. Patient was advised that no treatment is needed at this time but he may follow up with PCP if symptoms increase for further evaluation as indicated. 4. Overweight, unspecified. Currently patients BMI is 27.1. Obesity increases the risk of apnea, CPAP pressure requirements and overall health risks especially cardiovascular and diabetes. Thus patient is advised to lose weight. * Continue BIPAP therapy, pressure at 16/10 cm H2O. * Attempt to lose weight. * Avoid supine sleep when unable to use BIPAP. * Return in 1 year or sooner if concerns arise. Counseling Topics: Sleeping position, Weight loss health impact Visit Type: In Office Other Participants: Spouse/Significant Other Time Spent with Patient (minutes): 22 Provider Statement: I spent 100% of the Face to Face Visit with the patient with greater than 50% spent counseling the patient and coordination of care.
== END 2022-09-24 10:49 | disposition home or self-care (01) ==
LOC: SC 10:48
PROVIDERS: ATTEND Nurse Practitioner Family
DX: G47.31 Primary central sleep apnea (principal); I49.3 Ventricular premature depolarization; G47.61 Periodic limb movement disorder; E66.3 Overweight; Z68.27 Body mass index [BMI] 27.0-27.9, adult
CPT/HCPCS: 99213; G0463; 99212

== ENCOUNTER 2022-10-04 17:13 | Outpatient (CLI) | payer MEDICARE, OTHER | END 2022-10-04 17:14 | disposition left against medical advice (07) | LOC: EMS 17:13 | DX: R10.9 Unspecified abdominal pain (principal); R14.0 Abdominal distension (gaseous) ==

== ENCOUNTER 2023-09-24 10:34 | Outpatient (CLI) | payer MEDICARE, OTHER ==
--- NOTE | 2023-09-24 11:05 | Sleep Patient Instructions ---
Sleep Center Visit Summary - Patient Visit Information Reason for Visit: Annual follow-up - Patient Instructions Additional Instructions: You will continue with Positional therapy when not using your BiPAP with pressure set at 16/10 cmH2O. A supply prescription will be updated with your DME. We encourage you to continue to try to lose weight. Please follow up with the sleep care office in 1 year. - Clinic Information Contact: [facility] [address] [place] [email or web address] T: [phone]
--- NOTE | 2023-09-24 11:12 | SLEEP CARE CONSULTATION ---
Information from patient questionnaire entered by Kristen Capellan. I have reviewed and concur with the information entered by Kristen Capellan. This document represents the service I personally performed and the decisions made by me, Rachel Humphries ARNP. History of Present Illness Service Date and Time: 09/24/2023 1034 Previous diagnosis: Moderate, Central Sleep Apnea-Hypopnea Syndrome AHI: 18.6 (09/16/22, (58.5 in 2020)) Reason for follow up: annual (LAST SEEN 09/2022) Accompanied by: Spouse (Kary) Equipment type: BiPAP (ALVAREZ Dreamstation S/T MACHINE NEEDED) Equipment obtained from: Other ([facility]; getting supplies) Mask style: Nasal Backup mask available: Yes Prior sleep studies: Yes Year and Where: 2020 - [facility] Type of Sleep Study: Polysomnography (COMPLETED 09/16/22) HPI additional information: KAREN COPPOLA was diagnosed to have moderate, AHI 18.6, central sleep apnea- hypopnea syndrome and returned today for BIPAP therapy annual follow-up. Sleep Study - Results Type of Sleep Study: Polysomnography (COMPLETED 09/16/22) Prior sleep studies: Yes Year and Where: 2020 - [facility] CPAP Compliance Data Compliance data discussion: He has not been using his BiPAP, just doing positional therapy as outlined at last visit. He is able to stay on his sides and he moves a lot at night. Subjective On therapy, patient: reports: sleeping better, more rested overall, other (naps couple hours a day). denies: drowsiness while driving Initial [place] Sleepiness Scale score: 13 (in 2020) Current [place] Sleepiness Scale score: 6 Allergies and Home Medications Known drug allergies: Yes (as listed) Drug allergies reviewed: Yes Home medication list reviewed: Yes (no changes) Allergy and home medication list: Allergies metoprolol Allergy (Verified 09/22/23 13:11) Rash sulfamethoxazole [From Bactrim] Allergy (Verified 09/22/23 13:11) Unknown Tetanus Vaccines and Toxoid Allergy (Verified 09/22/23 13:11) Unknown trimethoprim [From Bactrim] Allergy (Verified 09/22/23 13:11) Unknown Review of Systems Review of systems same as previous: No (metastatic cancer in back) Physical Exam Vital signs obtained and entered by: RACHEL STRESS TEST TECHNICIAN-C Blood Pressure: 89/57 (normal sys 102) Cuff size: regular (left) Heart Rate: 55 O2 Saturation: 96 Height: 5 ft 10 in Weight: 183 lb 9.6 oz Weight change since last visit: 5 lb loss Body Mass Index: 26.3 BMI Classification: Overweight Impression and Plan 1. Central Sleep Apnea-Hypopnea Syndrome, moderate. Using positional therapy, the patient has better sleep quality and is more rested overall. When I last saw the patient he was on a BiPAP but was still struggling been able to use it. His last sleep study showed that he was in a normal AHI range when on his sides so we discussed him doing positional therapy when unable to use his BiPAP. He has not used his BiPAP since that time and feels that he is sleeping as well as possible and is able to stay on his sides. He does move a lot when he is sleeping from [id number] mostly. He would like to keep his BiPAP as a backup in case something changes and he needs to use it. I agreed with this and will update his prescription but also letting him know that since he is not compliant using it he may have to pay for his supplies. He voiced understanding. We will follow up with him next year or sooner if needed. Patient's apnea severity and rationale for treatment to reduce apnea, improve sleep quality and reduce cardiovascular and cerebrovascular events was reviewed. I also reviewed the benefit of consistent device use of BiPAP for hypertension, cardiac disease (CHF), and arrhythmia. 2. Overweight, unspecified. Currently patients BMI is 26.3. Obesity increases the risk of apnea, BiPAP pressure requirements and overall health risks especially cardiovascular and diabetes. Thus patient is advised to maintain a healthy weight. * Continue BiPAP pressure at 16/10 cmH2O * Continue positional therapy when unable to use BiPAP * Update supply prescription * Notify me if snoring with mask or feeling that the pressure is too much or too little * Maintain a healthy weight * Call this office if any problems using CPAP * Return for follow up in 12 months, or sooner if concerns arise Counseling Topics: Weight control Prescriptions: Device supplies Follow up with Sleep Care in: 1 year Visit Type: In Office Time Spent with Patient (minutes): 28 Provider Statement: I spent 100% of the Face to Face Visit with the patient with greater than 50% spent counseling the patient and coordination of care.
[2023-09-24 11:13] VITALS: BP 89/57; O2SAT 96
== END 2023-09-24 10:35 | disposition home or self-care (01) ==
LOC: SC 10:34
PROVIDERS: ATTEND Nurse Practitioner Family
DX: G47.31 Primary central sleep apnea (principal); E66.3 Overweight; Z68.26 Body mass index [BMI] 26.0-26.9, adult
CPT/HCPCS: 99213; G0463; 99212